=== PATIENT | female | born 1955 | race Caucasian/White ===

== ENCOUNTER 2023-04-17 10:41 | Outpatient (AMB) | payer MEDICARE, SELFPAY ==
[2023-04-17 10:43] VITALS: BP 118/64; PULSE 85; O2SAT 97; BMI 19.9
--- NOTE | 2023-04-17 10:43 | MHC.PC.OV ---
Vital Signs 04/17/23 10:43 Height 5 ft 6 in Weight 123 lb 8 oz BMI 19.9 BP 118/64 Blood Pressure Location Lt brachial Position Sitting Pulse 85 Pulse Source Pulse Oximeter Pulse Oximetry (%) 97 Oxygen Delivery Method Room Air Intake Visit Reasons: 3 MONTH F/U Accompanied by: Self / Same As Patient Allergies thimerosal Allergy (Unknown, Verified 04/17/23 10:43) Unknown Medication List - Last Reconciled 04/17/23 by Lazaro Martinez MD acetaminophen 325 mg PO QID PRN aspirin (Adult Low Dose Aspirin) 81 mg PO DAILY azithromycin take 500 mg today (day 1), then 250 mg for 4 days (days 2-5) PO blood sugar diagnostic One Touch Ultra Test Strips to check blood sugars twice a day brimonidine 0.2% 1 drp ophthalmic (eye) TID cephalexin 250 mg PO Q6H hydrochlorothiazide 12.5 mg PO DAILY ibuprofen 800 mg PO Q12H latanoprost 0.005% 1 drp ophthalmic (eye) BEDTIME lovastatin 40 mg PO DAILY metformin 500 mg PO TID tizanidine 4 mg PO Q8H PRN 30 days tramadol 50 mg PO Q8H PRN valsartan 160 mg PO DAILY Tobacco use date assessed: 08/23/22 Fall risk assessment: No Falls in past year Last assessed Fall Risk: 04/17/23 Dental Screening Dental Screen Date: 04/17/23 Did you have a dental visit in the last 12 months?: Yes Did you have a dental problem in the last 6 months where you did not have access to dental care?: No Was dental information given to patient?: Patient has dentist HPI 3 MONTH F/U HPI Details HTN DM and hyperlipidemia; A1C 7.0; compliant [facility] Medical History Diabetes mellitus Diabetes mellitus with coincident hypertension Hypertension Surgical History Hx of discectomy Family History Father Hypertension Mother Brain tumor Maternal Grandfather Stomach cancer Maternal Aunt Uterine cancer Brother No problems noted. Social History Housing: House Alcohol intake: never Patient Tobacco Use Status: Never used Tobacco e-Cigarette/Vaping Use: Never Used Second Hand Smoke Exposure: No service: No Current occupational status: retired Cognitive needs: No Hearing needs: No Vision needs: No Questionnaire PHQ-9 Over the last 2 weeks, how often have you been bothered by any of the following problems? 1. Little interest or pleasure in doing things: not at all 2. Feeling down, depressed, or hopeless: not at all 3. Trouble falling or staying asleep, or sleeping too much: not at all 4. Feeling tired or having little energy: not at all 5. Poor appetite or overeating: not at all 6. Feeling bad about yourself - or that you are a failure or have let yourself or your family down: not at all 7. Trouble concentrating on things, such as reading the newspaper or watching television: not at all 8. Moving or speaking so slowly that other people could have noticed. Or the opposite - being so fidgety or restless that you have been moving around a lot more than usual: not at all 9. Thoughts that you would be better off or of hurting yourself in some way: not at all Total score: 0 Depression Screening Interpretation: Negative 78751 - PHQ-9 Billing: Yes Source: Developed by Drs. Jacky Olson, Jaelyn Pollock, Luis Alberto Metz and colleagues, with an educational cheryl from [employer]. Thrive Questionnaire Date Thrive assessed: 08/23/22 AUDIT C Alcohol Use Questionnaire (AUDIT-C) 1. How often do you have a drink containing alcohol?: Never Total Score: 0 Score Reviewed/Action Taken: Yes YEVGENIY-7 AMB Questionnaire YEVGENIY-7 Date YEVGENIY - 7 assessed: 08/23/22 Source: Developed by Drs. Jacky Olson, Jaelyn Pollock, Luis Alberto Metz and colleagues, with an educational cheryl from [employer]. Review of Systems Const Denies chills, Denies headache(s) and Denies weight loss ENT Denies headache(s) Card Denies chest pain, Denies syncope, Denies irregular heart rhythm and Denies dyspnea Resp Denies chest congestion, Denies cough and Denies dyspnea GI Denies abdominal pain, Denies change in stool character, Denies nausea and Denies vomiting Musc Denies deformity and Denies joint swelling Neuro Denies syncope and Denies headache(s) Physical exam (Primary Care) Vital Signs: Last Vital Signs Pulse 85 04/17/23 10:43 BP 118/64 04/17/23 10:43 Pulse Ox 97 04/17/23 10:43 Oxygen Delivery Method Room Air 04/17/23 10:43 BMI result Body Mass Index 19.9 Tobacco/Smoking Status: Tobacco use Status Tobacco use date assessed 08/23/22 04/17/23 10:44 Patient Tobacco Use Status Never used Tobacco 04/17/23 10:44 e-Cigarette/Vaping Use Never Used 04/17/23 10:44 PHQ-9: PHQ-9 Score PHQ-9: Total score 0 04/17/23 11:16 Depression Screening Interpretation: Negative Thrive Assessment: Date of Thrive Assessment Date Thrive assessed 08/23/22 04/17/23 10:44 Const General: cooperative, comfortable and no acute distress Resp Effort & Inspection: normal respiratory effort Auscultation: clear to auscultation bilaterally Percussion: percussion normal Cardio Jugular venous distension: no JVD Rate: regular rate Rhythm: regular rhythm GI Inspection: Yes normal to inspection Results AMB Hemoglobin A1c AMB Hemoglobin A1c 7.4 % Last Edit by MEMO Friedman on 04/17/23 11:17 Results Reviewed Results Reviewed: Laboratory Last Values Hgb A1c (Clinic) 7.4 % (4.0-6.0) H 04/17/23 11:16 Assessment and Plan Assessment & Plan (1) Hyperlipidemia: Code(s): E78.5 - Hyperlipidemia, unspecified Plan: stable; same x (2) Diabetes mellitus with coincident hypertension: Code(s): E11.9 - Type 2 diabetes mellitus without complications; I10 - Essential (primary) hypertension Plan: stable; same rx (3) Hypertension: Code(s): I10 - Essential (primary) hypertension Plan: stable; same rx Orders: Orders AMB Hemoglobin A1c Today E11.9 - Type 2 diabetes mellitus without complications Glucose Fasting Today R73.9 - Hyperglycemia, unspecified Hemoglobin A1c Today R73.9 - Hyperglycemia, unspecified Lipid Panel Today E78.5 - Hyperlipidemia, unspecified Coding Level of Care Code Est Pt Level 4 (16142) Diagnoses Hyperlipidemia E78.5 Diabetes mellitus with coincident hypertension E11.9; I10 Hypertension I10
== END 2023-04-17 11:06 | disposition home or self-care (01) ==
PROVIDERS: PCP Internal Medicine; Visit Provider Internal Medicine
DX: E78.5 Hyperlipidemia, unspecified (principal); E11.9 Type 2 diabetes mellitus without complications; I10 Essential (primary) hypertension
CPT/HCPCS: 83036; 99214

== ENCOUNTER 2023-08-27 10:16 | Outpatient (AMB) | payer MEDICARE, SELFPAY ==
[2023-08-27 10:20] VITALS: BP 124/58; PULSE 88; O2SAT 99; BMI 20.5
--- NOTE | 2023-08-27 10:20 | MHC.PC.OV ---
Vital Signs 08/27/23 10:20 Height 5 ft 6 in Weight 127 lb BMI 20.5 BP 124/58 L Blood Pressure Location Lt brachial Position Sitting Pulse 88 Pulse Source Pulse Oximeter Pulse Oximetry (%) 99 Oxygen Delivery Method Room Air Intake Visit Reasons: 3M. F/U-Back Pain Legal Archivist Required: No Riveter Portable Machine: Not Required per policy Accompanied by: Self / Same As Patient Allergies thimerosal Allergy (Unknown, Verified 08/27/23 10:20) Unknown Medication List - Last Reconciled 08/27/23 by Lazaro Martinez MD acetaminophen 325 mg PO QID PRN blood sugar diagnostic One Touch Ultra Test Strips to check blood sugars twice a day brimonidine 0.2% 1 drp ophthalmic (eye) TID hydrochlorothiazide 12.5 mg PO DAILY ibuprofen 800 mg PO Q12H latanoprost 0.005% 1 drp ophthalmic (eye) BEDTIME lovastatin 40 mg PO DAILY metformin 500 mg PO TID tizanidine 4 mg PO Q8H PRN 30 days tramadol 50 mg PO Q8H PRN 30 days valsartan 160 mg PO DAILY Tobacco use date assessed: 08/27/23 Fall risk assessment: No Falls in past year Last assessed Fall Risk: 08/27/23 Dental Screening Dental Screen Date: 08/27/23 Did you have a dental visit in the last 12 months?: Yes Did you have a dental problem in the last 6 months where you did not have access to dental care?: No Was dental information given to patient?: Patient has dentist HPI 3M. F/U-Back Pain HPI Details DM HTN and hyperlip; stable on rx; labs ok PFSH Medical History Diabetes mellitus Diabetes mellitus with coincident hypertension Hypertension Surgical History Hx of discectomy Family History Father Hypertension Mother Brain tumor Maternal Grandfather Stomach cancer Maternal Aunt Uterine cancer Brother No problems noted. Social History Housing: House Alcohol intake: never Patient Tobacco Use Status: Never used Tobacco e-Cigarette/Vaping Use: Never Used Second Hand Smoke Exposure: No service: No Current occupational status: retired Cognitive needs: No Hearing needs: No Vision needs: Yes Questionnaire PHQ-9 Over the last 2 weeks, how often have you been bothered by any of the following problems? 1. Little interest or pleasure in doing things: not at all 2. Feeling down, depressed, or hopeless: not at all 3. Trouble falling or staying asleep, or sleeping too much: not at all 4. Feeling tired or having little energy: not at all 5. Poor appetite or overeating: not at all 6. Feeling bad about yourself - or that you are a failure or have let yourself or your family down: not at all 7. Trouble concentrating on things, such as reading the newspaper or watching television: not at all 8. Moving or speaking so slowly that other people could have noticed. Or the opposite - being so fidgety or restless that you have been moving around a lot more than usual: not at all 9. Thoughts that you would be better off or of hurting yourself in some way: not at all Total score: 0 Depression Screening Interpretation: Negative Depression Screening Done: Yes [id number] - PHQ-9 Billing: Yes Source: Developed by Drs. Jacky Olson, Jaelyn Pollock, Luis Alberto Metz and colleagues, with an educational cheryl from [employer]. Thrive Questionnaire Date Thrive assessed: 08/27/23 I am a: Patient What is your living situation today?: I have a steady place to live Within the past 12 months, did the food you bought not last and you didn't have the money to get more?: Never true Within the past 12 months, did you worry whether your food would run out before you got money to buy more?: Never true Do you have trouble paying for medicines?: No Do you have trouble getting transportation to medical appointments?: No Do you have trouble paying your heating and electricity bill?: No Do you have trouble taking care of your child, family member or friend?: No Do you have trouble with day-to-day activities such as bathing, preparing meals, shopping, managing finances, etc.?: No Are you currently unemployed and looking for a job?: No Are you interested in more education?: No Please select the resources that you would like help with: None Currently or been in a relationship where the following occur: no concerns reported AUDIT C Alcohol Use Questionnaire (AUDIT-C) 1. How often do you have a drink containing alcohol?: Never Total Score: 0 Score Reviewed/Action Taken: Yes YEVGENIY-7 AMB Questionnaire YEVGENIY-7 Date YEVGENIY - 7 assessed: 08/27/23 Feeling nervous, anxious, or on edge: 0 = Not at all Not being able to stop or control worryin = Not at all Worrying too much about different things: 0 = Not at all Trouble relaxin = Not at all Being so restless that it is hard to sit still: 0 = Not at all Becoming easily annoyed or irritable: 0 = Not at all Feeling afraid as if something awful might happen: 0 = Not at all Total YEVGENIY-7 score (0-4 normal; 5-9 mild; 10-14 moderate; 15-21 severe): 0 Source: Developed by Drs. Jacky Olson, Jaelyn Pollock, Luis Alberto Metz and colleagues, with an educational cheryl from [employer]. YEVGENIY-7 Assessment Billing YEVGENIY-7 Assessment Tool: YEVGENIY-7 Assessment 36395 Review of Systems Const Denies chills, Denies headache(s) and Denies weight loss ENT Denies headache(s) Card Denies chest pain, Denies syncope, Denies irregular heart rhythm and Denies dyspnea Resp Denies chest congestion, Denies cough and Denies dyspnea GI Denies abdominal pain, Denies change in stool character, Denies nausea and Denies vomiting Musc Denies deformity and Denies joint swelling Neuro Denies syncope and Denies headache(s) Physical exam (Primary Care) Vital Signs: Last Vital Signs Pulse 88 08/27/23 10:20 BP 124/58 L 08/27/23 10:20 Pulse Ox 99 08/27/23 10:20 Oxygen Delivery Method Room Air 08/27/23 10:20 BMI result Body Mass Index 20.5 Tobacco/Smoking Status: Tobacco use Status Tobacco use date assessed 08/27/23 08/27/23 10:21 Patient Tobacco Use Status Never used Tobacco 08/27/23 10:21 e-Cigarette/Vaping Use Never Used 08/27/23 10:21 PHQ-9: PHQ-9 Score PHQ-9: Total score 0 08/27/23 10:32 Depression Screening Interpretation: Negative Thrive Assessment: Date of Thrive Assessment Date Thrive assessed 08/27/23 08/27/23 10:21 Currently or been in a relationship where the following occur: no concerns reported Const General: cooperative, comfortable, no acute distress and alert Neck Neck: Yes no lymphadenopathy Thyroid: Thyroid normal Resp Effort & Inspection: normal respiratory effort Auscultation: clear to auscultation bilaterally Percussion: percussion normal Cardio Jugular venous distension: no JVD Palpation: normal PMI Rate: regular rate Rhythm: regular rhythm Heart sounds: S1 normal heart sound present and S2 normal heart sound present GI Inspection: Yes normal to inspection Palpation (GI): No hepatosplenomegaly present Skin General skin exam: no rashes or lesions noted Extrem General: Yes no clubbing, cyanosis or edema Results AMB Hemoglobin A1c AMB Hemoglobin A1c 7.0 % Last Edit by MEMO Friedman on 08/27/23 10:33 Results Reviewed Results Reviewed: Laboratory Last Values Hgb A1c (Clinic) 7.0 % (4.0-6.0) H 08/27/23 10:33 Assessment and Plan Assessment & Plan (1) Diabetes mellitus with coincident hypertension: Code(s): E11.9 - Type 2 diabetes mellitus without complications; I10 - Essential (primary) hypertension Plan: stable; same rx (2) Hyperlipidemia: Code(s): E78.5 - Hyperlipidemia, unspecified Plan: stable;same rx (3) Hypertension: Code(s): I10 - Essential (primary) hypertension Plan: stable;same rx Orders: Orders Thyroid Stimulating Hormone Today E03.9 - Hypothyroidism, unspecified Hemoglobin A1c Today R73.9 - Hyperglycemia, unspecified Microalbumin, Random (w Creat) Today E11.69 - Type 2 diabetes mellitus with other specified complication, E66.01 - Morbid (severe) obesity due to excess calories AMB Hemoglobin A1c Today E11.9 - Type 2 diabetes mellitus without complications, I10 - Essential (primary) hypertension Lipid Panel Today E78.5 - Hyperlipidemia, unspecified Complete Blood Count Auto Diff Today D64.9 - Anemia, unspecified Comprehensive [place]. Panel Fast Today N28.9 - Disorder of kidney and ureter, unspecified Coding Level of Care Code Est Pt Level 4 (07544) Diagnoses Diabetes mellitus with coincident hypertension E11.9; I10 Hyperlipidemia E78.5 Hypertension I10 Additional Codes YEVGENIY-7 Assessment Billing - YEVGENIY-7 Assessment Tool: YEVGENIY-7 Assessment [id number] ([id number])
== END 2023-08-27 10:41 | disposition home or self-care (01) ==
PROVIDERS: PCP Internal Medicine; Visit Provider Internal Medicine
DX: E11.69 Type 2 diabetes mellitus with other specified complication (principal); I10 Essential (primary) hypertension; E78.5 Hyperlipidemia, unspecified
CPT/HCPCS: 83036; 99214

== ENCOUNTER 2023-10-24 13:09 | Outpatient (AMB) | payer MEDICARE, SELFPAY ==
--- NOTE | 2023-10-24 13:16 | A.OFFVIS_ITS ---
Intake Vital Signs 10/24/23 13:23 Height 5 ft 6 in Weight 127 lb BMI 20.5 BP 130/72 Blood Pressure Location Lt brachial Position Sitting Respiration 12 Pulse 95 Pulse Source Pulse Oximeter Pulse Oximetry (%) 100 Oxygen Delivery Method Room Air Intake Visit Reasons: Postlaminectomy syndrome/CONFIRM Intake Note: Patient comes in for initial visit was referred by primary care. Reports pain 8.5/10. Allergies thimerosal Allergy (Unknown, Verified 10/24/23 13:23) Unknown HPI HPI Comments History of Present Illness Details Soy is very pleasant 68 years old female who presents in my office with complains on pain in the lower back radiating to the right lower extremity as well as pain in the left buttock in the projection of the sciatic nerve exits to the surface of the muscle in sensation of burning. She reports that prolonged sitting aggravates her pain. She reports that flexing forward cause some moderate discomfort in the lower back. She reports that flexing her spine backwards alleviate her pain and make her feel better. She reports that pain is alleviated also by horizontal position in bed. The history of this pain it started in 2002 she reports that she had [address] Monson in April of 2020 and July of 2020. She reports that both of the procedures aggravated her pain. She received spinal cord stimulator surgical implant in thoracic spine by Dr. Samaniego which was performed in March of 2021. She denies spinal cord stimulator helps her pain. She went through several adjustments with [facility] specialists to make her pain better. She received 2 lumbar epidural steroid injections done by [facility] and does were not helpful for her pain. She is unable to sleep normally can not do activities of daily living can not take care of herself and can function normally she is retired individual. She is self mobile. In terms of tissue damage he reports her pain as shooting in the right leg stabbing in the right leg burning and searing in the left buttock hurting and aching in the right foot and radiating down the right leg and right foot. She received multiple images in the past last MRI was performed on the lumbar spine in 10/29/2020. The dictation of the MRI is as below. She takes tramadol for her pain and she reports that 50 mg twice a day allow her to do activities of daily living better. He had multiple physical therapies with [facility] she received chiropractic manipulations and she reports that it gave her temporary 4-6 hours pain relief. She reports that 10s unit and massage therapy does not help her pain. Her past medical history significant for hypertension and diabetes her past surgical history is as above with 2 diskectomies and spinal cord stimulator implant. Social history she is retired individual she denies drinking alcohol smoking cigarettes or using recreational drugs. [facility] Medical History Diabetes mellitus Diabetes mellitus with coincident hypertension Hypertension Surgical History Hx of discectomy Family History Father Hypertension Mother Brain tumor Maternal Grandfather Stomach cancer Maternal Aunt Uterine cancer Brother No problems noted. Social History Housing: House Alcohol intake: never Patient Tobacco Use Status: Never used Tobacco e-Cigarette/Vaping Use: Never Used Second Hand Smoke Exposure: No service: No Current occupational status: retired Cognitive needs: No Hearing needs: No Vision needs: Yes Review of Systems Const All systems reviewed & are unremarkable except as noted in HPI and below Reports no additional complaints Eyes Details: Glaucoma Reports blurry vision ENT Reports no additional complaints and Reports Normal hearing present Card Reports no additional complaints Resp Reports no additional complaints GI Reports no additional complaints Musc Reports as per HPI Neuro Reports no additional complaints, Reports Normal hearing present, Denies Abnormal speech present, Denies confusion and Denies Sensory deficit (Neuro) Psych Reports no additional complaints and Denies confusion Physical Exam Vital Signs: Last Vital Signs Pulse 95 10/24/23 13:23 Resp 12 10/24/23 13:23 BP 130/72 10/24/23 13:23 Pulse Ox 100 10/24/23 13:23 Oxygen Delivery Method Room Air 10/24/23 13:23 BMI result Body Mass Index 20.5 Const General: no acute distress; No confusion Orientation/consciousness: patient oriented x3 and No confusion Eyes General: appearance normal, both eyes and all related structures Pupils: Equal, round and reactive pupils present EOM: EOMs intact bilaterally Neck Neck: Yes full ROM Chest Chest palpation & inspection: normal inspection of the chest Resp Effort & Inspection: normal respiratory effort, able to speak in complete sentences, normal respiratory pattern, no audible wheezes and no cough Cardio Jugular venous distension: no JVD GI Inspection: Yes normal to inspection Back/Spine/Pelvis Other: There are 2 very well-healed scar on inspection of this patient's back. There is spinal cord stimulator incision in projection of T10-T11 vertebra and there is diskectomy incision in the projection of the L4-5 vertebra in the back. She walks without difficulty she is able to stand on bilateral tiptoes in bilateral heels without difficulty. Flexing forward aggravates her pain and prolonged sitting aggravates her pain. Flexing backwards sexual alleviate her pain. Loading test is negative. Tenderness on palpation in projection of the sacral bone. No tenderness on palpation in projection of the paraspinal spinal regions of the lumbar spine. Tenderness on projection in the left buttock with sensation of burning at the point of sciatic nerve exiting sciatic notch. Neuro General: patient oriented x3, gait normal and No confusion Cranial nerves: Yes CN's II-XII intact bilaterally, Yes Equal, round and reactive pupils present, Yes Normal hearing present and Yes Ability to bilaterally elevate shoulders present Speech: No Abnormal speech present Gait exam (Neuro): Normal gait present Motor exam (neuro): 5/5 motor strength present throughout Sensory Exam: No Sensory deficit (Neuro) Extrem General: No pedal edema Psych Appearance: grossly normal and well kempt Mental Status: mental status grossly normal Speech and movement: Normal speech and movement present Affect: normal affect Attitude: cooperative Thought process: Normal thought process present Thought content: Normal thought content present Insight: Good insight present (Psych) Judgement: Good judgement present (Psych) Results Reviewed Results Reviewed: MRI lumbar spine 09/20/2020 there is past surgical mildly enhancing soft tissues between the spinous processes of L4 and L5 favored to be postoperative there is no focal fluid collection. There is 5 lumbar type vertebral bodies with stable alignment and bone marrow signal intensity. Conus medullaris is stable in position caliber and signal intensity. There are bilateral hemilaminectomy defects at L5-S1 heterogeneous enhancing tissues at the postoperative site. There is residual disc protrusion in paracentral central and left paracentral anterior thecal space with heterogeneous T2 signal intensity measuring approximately 1.7 x 1 cm which demonstrates heterogeneous enhancement with relative sparing of 2 round areas of signal intensity isoechoic to disc in the central and right paracentral compartment. There is continues enhancing tissue extending along the residual left lamina and surrounding left S1 nerve root which is posteriorly retracted and has mild heterogenous signal intensity. There is a new enhancing tissue surrounding right S1 nerve root which is not posteriorly translated but has abnormal enhancement. There is broad-based disc protrusion at L4-L5 and enhancement of the right lateral recess with a small linear focus of T2 hyperintensity within the annulus consistent in the fissure. There is abutment of the traversing L5 nerve roots bilaterally. There is mild ligamentous laxity and facet arthrosis contributing to the mild central canal stenosis. There is no drainable fluid collections. No epidural hematoma. There is no significant changes L1-L3. I also personally evaluated the MRI image as above and discovered L5 and S1 Modic type 1 changes as well as possible L4 subtle Modic type changes. Assessment & Plan Assessment & Plan (1) Vertebrogenic low back pain: Code(s): M54.51 - Vertebrogenic low back pain (2) Postlaminectomy syndrome: Code(s): M96.1 - Postlaminectomy syndrome, not elsewhere classified (3) Chronic pain syndrome: Code(s): G89.4 - Chronic pain syndrome (4) Radiculopathy, lumbar region: Code(s): M54.16 - Radiculopathy, lumbar region Plan This patient is case is very complex and it is hard to determine what his actual pain generators for this patient. There is certainly element of vertebra genic changes which could be attempted to be treated with intraseptal procedure. There also severe protrusion and I would call it extrusion of L5-S1 disc which would result in bilateral nerve root compression S1. For this pathology I could offer the patient caudal epidural steroid injection with catheter. She also has significant adhesions surrounding her nerve roots and caudal epidural steroid injection may help her. It will be done under sedation. If those to above will not be helping her pain I can offer her to admit her for chronic opioid therapy here under opioid contract. Risks of chronic opioid therapy were explained to the patient. She was in the past offered spinal fusion L4-5 S1 probably however she lives alone and very reluctant to go for yet another surgery on her back. Patient Instructions: I here by testify that I spent 48 minutes in conversation with this patient as well as evaluating prior records evaluating diagnostic images discussing potential treatments and organizing this note. Coding Level of Care Code New Pt Level 4 (33908) Diagnoses Vertebrogenic low back pain M54.51 Postlaminectomy syndrome M96.1 Chronic pain syndrome G89.4 Radiculopathy, lumbar region M54.16
[2023-10-24 13:23] VITALS: BP 130/72; PULSE 95; RESP 12; O2SAT 100; BMI 20.5
== END 2023-10-24 14:20 | disposition home or self-care (01) ==
PROVIDERS: PCP Internal Medicine; Visit Provider Anesthesiology
DX: M54.51 Vertebrogenic low back pain (principal); M96.1 Postlaminectomy syndrome, not elsewhere classified; G89.4 Chronic pain syndrome; M54.16 Radiculopathy, lumbar region
CPT/HCPCS: 99204

== ENCOUNTER → 2023-10-24 13:09 | Outpatient (BNVA) | payer MEDICARE, SELFPAY | PROVIDERS: PCP Internal Medicine; Visit Provider Anesthesiology | DX: M96.1 Postlaminectomy syndrome, not elsewhere classified (principal); M54.51 Vertebrogenic low back pain; M54.16 Radiculopathy, lumbar region; G89.4 Chronic pain syndrome; Z79.891 Long term (current) use of opiate analgesic; Z96.82 Presence of neurostimulator | CPT/HCPCS: 99202 ==

== ENCOUNTER 2023-11-23 11:00 | Day surgery (SDC) | payer MEDICARE, SELFPAY ==
[2023-11-21 10:46] VITALS: BMI 20.5
--- NOTE | 2023-11-22 12:00 | HO.ANESPROP2 ---
Documented by User: Crystal Moses NP 11/22/23 12:00 HPI - Anesthesia Eval Consult details Narrative: 68yo F for Caudal Epidural Steroid Injection with catheter PMFSH Active Problems Active Problems: All Active Problems Radiculopathy, lumbar region (Acute) Chronic pain syndrome (Acute) Postlaminectomy syndrome (Acute) Vertebrogenic low back pain (Acute) Ingrown toenail (Acute) Hyperlipidemia (Acute) Shoulder pain, right (Acute) Diabetes mellitus with coincident hypertension (Acute) Hypertension (Acute) Preop exam for internal medicine (Acute) Diabetes mellitus (Acute) Past Medical History Medical History Diabetes mellitus with coincident hypertension Hypertension Diabetes mellitus Family History Family History Father Hypertension Mother Brain tumor Maternal Grandfather Stomach cancer Maternal Aunt Uterine cancer Brother No problems noted. Surgical History Surgical History (Updated 11/23/23 @ 12:06 by Malina Kong MD) S/P insertion of spinal cord stimulator Hx of discectomy Social History Social History Housing: House Alcohol intake: never Patient Tobacco Use Status: Never used Tobacco e-Cigarette/Vaping Use: Never Used Second Hand Smoke Exposure: No Use of substances other than those prescribed or required for medical reasons: No Are you DNR?: No Advance Directives: No Advance Directives Information Provided: Yes service: No Current occupational status: retired Cognitive needs: No Hearing needs: No Vision needs: Yes Meds Allergies Allergy/AdvReac Type Severity Reaction Status Date / Time thimerosal Allergy Unknown Unknown Verified 11/23/23 11:31 gabapentin AdvReac Diarrhea Verified 11/23/23 11:31 Home Medications ?Medication ?Instructions ?Recorded ?Confirmed ?Last Taken ?Type acetaminophen 325 mg capsule 325 mg PO QID PRN 06/08/20 08/27/23 Unknown History brimonidine 0.2 % eye drops 1 drp ophthalmic (eye) TID 06/08/20 08/27/23 Unknown History ibuprofen 800 mg tablet 800 mg PO Q12H 06/08/20 08/27/23 Unknown History latanoprost 0.005 % eye drops 1 drp ophthalmic (eye) BEDTIME 06/08/20 08/27/23 Unknown History Exam Height,Weight and Vital Signs: Height 5 ft 6 in Weight 57.606 kg Assessment and Plan Assessment Anesthesia Assessment: Chart Reviewed Documented by User: Malina Kong MD 11/23/23 12:08 HPI - Anesthesia Eval Consult details Narrative: 68yo F for Caudal Epidural Steroid Injection with catheter. H/o difficult intubation but has had surgery since with no problems with intubation. PMFSH Active Problems Active Problems: All Active Problems Radiculopathy, lumbar region (Acute) Chronic pain syndrome (Acute) Postlaminectomy syndrome (Acute) Vertebrogenic low back pain (Acute) Ingrown toenail (Acute) Hyperlipidemia (Acute) Shoulder pain, right (Acute) Diabetes mellitus with coincident hypertension (Acute) Hypertension (Acute) Preop exam for internal medicine (Acute) Past Medical History Medical History Diabetes mellitus with coincident hypertension Hypertension Diabetes mellitus Family History Family History Father Hypertension Mother Brain tumor Maternal Grandfather Stomach cancer Maternal Aunt Uterine cancer Brother No problems noted. Family history of problems with anesthesia: No Surgical History Surgical History (Updated 11/23/23 @ 12:06 by Malina Kong MD) S/P insertion of spinal cord stimulator Hx of discectomy History of Problems with Anesthesia: Yes (H/o difficult intubation with one of her earlier surgeries. Not since) Social History Social History Housing: House Alcohol intake: never Patient Tobacco Use Status: Never used Tobacco e-Cigarette/Vaping Use: Never Used Second Hand Smoke Exposure: No Use of substances other than those prescribed or required for medical reasons: No Are you DNR?: No Advance Directives: No Advance Directives Information Provided: Yes service: No Current occupational status: retired Cognitive needs: No Hearing needs: No Vision needs: Yes Meds Allergies Allergy/AdvReac Type Severity Reaction Status Date / Time thimerosal Allergy Unknown Unknown Verified 11/23/23 11:31 gabapentin AdvReac Diarrhea Verified 11/23/23 11:31 Home Medications ?Medication ?Instructions ?Recorded ?Confirmed ?Last Taken ?Type acetaminophen 325 mg capsule 325 mg PO QID PRN 06/08/20 08/27/23 Unknown History brimonidine 0.2 % eye drops 1 drp ophthalmic (eye) TID 06/08/20 08/27/23 Unknown History ibuprofen 800 mg tablet 800 mg PO Q12H 06/08/20 08/27/23 Unknown History latanoprost 0.005 % eye drops 1 drp ophthalmic (eye) BEDTIME 06/08/20 08/27/23 Unknown History Exam Height,Weight and Vital Signs: Height 5 ft 6 in Weight 57.606 kg Vital Signs Temp Pulse Resp BP Pulse Ox O2 Del Method 11/23/23 11:38 97.7 F 96 16 162/71 H 98 Room Air Pertinent Lab Results Pertinent Lab Results: Lab Results 11/23/23 Range/Units 11:42 POC Glucose 115 (60-115) mg/dL Airway Mallampati Class: III TM Dist: >3cm Neck ROM: Full Loose/Missing/Broken Teeth: No (Denies broken, loose, missing teeth) Heart: RRR Lungs: CTAB Assessment and Plan Assessment Anesthesia Assessment: Anesthesia Plan Discussed and Chart Reviewed Final Anesthetic Review Family History of Problems with Anesthesia: No History of Problems with Anesthesia: Yes (H/o difficult intubation with one of her earlier surgeries. Not since) NPO: Yes ASA Class: II Final Preanesthetic Review: No Changes in Pt Med Stat, Meds/Allgs Chart Reviewed, Consent Obtained/Reviewed and Anes Risks/Benef Reviewed Patient Risk: Intermediate Procedure Risk: Low Assessment/Block/Sedation in SS: Assess/Block/Sedation-SS Anesthetic Plan Anesthetic Plan: MAC: Disposition: Standard PACU
--- NOTE | ~2023-11-23 | FL_ITS ---
EXAMINATION: XR FLUOROSCOPY WITH IMAGES CLINICAL INFORMATION: Caudal epidural steroid injection. COMPARISON: None. TECHNIQUE: Fluoroscopy Supervised By: Dr. Jc Mendoza. Fluoroscopy Time: 10.4 seconds. Cumulative Dose: 2.0267 mGy. DAP: 2. FINDINGS: The submitted frontal and lateral fluoroscopic images show an injection needle and injected contrast in the vicinity of the epidural space of the sacrum. FL/FL guidance in OR IMPRESSION: Intraoperative fluoroscopic guidance is provided during sacral pain management procedure. Please see the patient's Operative Report for full procedural details.
[2023-11-23 11:21] VITALS: BMI 20.3
[2023-11-23 11:38] VITALS: BP 162/71; PULSE 96; RESP 16; TEMP 36.5; O2SAT 98
[2023-11-23] MEDS: Lactated Ringers 1,000 ML 100 ML IVCONT (11:39)
[2023-11-23 11:46] LABS: Glucose, Whole Blood 115 mg/dL (60-115)
--- NOTE | 2023-11-23 12:16 | MHC.SHP ---
Pre-Procedural Eval Section A - 24 Hr Update-Section A only Date of Service: 11/23/23 The patient is an INPATIENT: No Changes since office visit: Yes Patient answered all questions The patient has been examined within 24 hours of the surgical procedure. The History & Physical has been completed within 30 days and I have reviewed it.: No Section B - Complete if H&P > 30 days Chief Complaint: Radiculopathy, lumbar region Details of Present Illness: as above Relevant Family History (Specify if Yes): No Relevant Social History: Other (specify) Present Medications: None Medical History: No relevant PMH History of Previous Operations: Relevant previous surgery/procedure and date(s) Allergies: Allergies Allergy/AdvReac Type Severity Reaction Status Date / Time thimerosal Allergy Unknown Unknown Verified 11/23/23 11:31 gabapentin AdvReac Diarrhea Verified 11/23/23 11:31 Review of Systems Sugical H&P ROS: Negative: Constitution, Cardiovascular, Respiratory, Neurological, Psychiatric, Hem-Onc, Allergic/Immunologic, Gastrointestinal, Genitourinary, Musculoskeletal, Integumentary, Endocrine and Eyes/Ears/Nose/Throat Exam Surgical H&P Exam: Normal: HEENT, Normal: Heart, Normal: Lungs, Normal: Extremities, Normal: Abdomen, Normal: Skin and Normal: Neurological Plan Diagnosis/Plan: Unchanged I have reviewed the history and physical and performed a pertinent physical examination on my patient. No changes have occurred unless specified. Time Spent With Patient Time: Total time managing care of this patient today ____ minutes.
--- NOTE | 2023-11-23 12:46 | PM.OP ---
Brief Operative Note Date of Service: 11/23/23 Pre-op diagnosis: postlaminectomy syndrome Post-op diagnosis: same Procedure: caudal JAYSHREE with catheter. Surgeon: Jc Mendoza MD Was an Facility Environmental Technician used for this Procedure?: No Estimated blood loss (mL): 1 Condition: stable Disposition: PACU
[2023-11-23 12:50] VITALS: BP 121/49; PULSE 85; RESP 12; TEMP 36.6; O2SAT 95
--- NOTE | 2023-11-23 12:50 | W.PM.OPN ---
Operative Note Operative Note Date of Service: 11/23/23 Narrative: Caudal JAYSHREE with catheter . After obtaining informed consent the patient was taken to the operating room where she was position on operating table prone.? ASA monitors applied and patient was moderately sedated ?Time-out was performed delineating correct site, side, the nature of the procedure, patient's allergy need for antibiotic therapy.? All operating room staff was participating in OR time-out procedure.? Her lower back, bilateral buttocks and intergluteal cleft were thoroughly prepped with ChloraPrep and draped with sterile fenestrated clear drape.? Fluoroscopy C-arm was brought over the operating field and picture of midline sacral bone superimposing on symphysis pubis was obtained on the C-arm screen.? After that the position of the C-arm was turned into the lateral.? The position of sacral hiatus was noted on the screen.? 2.5 cm below the sacral hiatus opening local anesthetic lidocaine 2% 3 cc was injected into the skin with 25 gauge 1/2 inch needle.? After that 18 gauge Touhy needle 10 cm long spinal needle was inserted through the skin and advanced the opening of sacral hiatus on intermittent anterior posterior and lateral views.? When needle entered the sacral canal injection of the contrast performed into the needle demonstrating epidural spread of the contrast.? After that epidural catheter was inserted through the needle and it was advanced into the epidural space until resistance was felt. Contrast injection was performed into the catheter and it demonstrated epidural spread of the contrast mostly on the right side of the epidural space. There was deficiency of the spread of the contrast on the left. After that 25 cc of preservative-free normal saline was injected into the catheter, following administration of lidocaine 1% preservative-free mixed with Kenalog 40 mg. After that epidural catheter was removed from the epidural space en mass with the needle, the tip was intact. Bacitracin ointment was applied to the needle insertion point. The patient tolerated procedure well. She was brought to PACU for recovery.
[2023-11-23 13:05] VITALS: BP 121/49; PULSE 85; RESP 12; O2SAT 95
[2023-11-23 13:20] VITALS: BP 139/68; PULSE 79; RESP 16; TEMP 36.6; O2SAT 97
[2023-11-23] MEDS: Ondansetron ODT 4 MG TAB.RAPDIS TRANSLINGU (14:05)
== END 2023-11-23 14:20 | disposition home or self-care (01) ==
PROVIDERS: PCP Internal Medicine; Visit Provider Anesthesiology
PROC: 3E0R3GC Introduction of Other Therapeutic Substance into Spinal Canal, Percutaneous Approach (ICD-10-PCS; CPT 62322; principal; 2023-11-23 13:50)
DX: M54.16 Radiculopathy, lumbar region (principal); M54.51 Vertebrogenic low back pain; G89.4 Chronic pain syndrome; M96.1 Postlaminectomy syndrome, not elsewhere classified; E11.9 Type 2 diabetes mellitus without complications; I10 Essential (primary) hypertension; Z96.82 Presence of neurostimulator; Z79.84 Long term (current) use of oral hypoglycemic drugs; Z79.899 Other long term (current) drug therapy; Z88.8 Allergy status to other drugs, medicaments and biological substances; Z98.890 Other specified postprocedural states
CPT/HCPCS: 62323; 82947; J2250; J2704; J2795; J3010; J3301; Q9967

== ENCOUNTER → 2023-11-23 11:00 | Outpatient (BNV) | payer MEDICARE, SELFPAY | PROVIDERS: PCP Internal Medicine; Visit Provider Anesthesiology | DX: M96.1 Postlaminectomy syndrome, not elsewhere classified (principal); M54.16 Radiculopathy, lumbar region | CPT/HCPCS: 62323 ==

== ENCOUNTER 2023-11-27 14:07 | Outpatient (AMB) | payer MEDICARE, SELFPAY ==
[2023-11-27 14:09] VITALS: BP 130/78; PULSE 86; O2SAT 98; BMI 20.2
--- NOTE | 2023-11-27 14:09 | A.OFFPC_ITS ---
Vital Signs 11/27/23 14:09 Height 5 ft 6 in Weight 125 lb BMI 20.2 BP 130/78 Blood Pressure Location Lt brachial Position Sitting Pulse 86 Pulse Source Pulse Oximeter Pulse Oximetry (%) 98 Oxygen Delivery Method Room Air Intake Visit Reasons: Jonathon Abdi, cataract Intake Note: Patient is here for a Pre-op for Catarcat scheduled with Dr. Abdi on 12/18/2023 Stack Attendant Required: No Accompanied by: Self / Same As Patient Allergies thimerosal Allergy (Unknown, Verified 11/27/23 14:09) Unknown gabapentin Adverse Reaction (Verified 11/27/23 14:09) Diarrhea Medication List - Last Reconciled 11/28/23 by Lazaro Martinez MD acetaminophen 325 mg PO QID PRN blood sugar diagnostic One Touch Ultra Test Strips to check blood sugars twice a day brimonidine 0.2% 1 drp ophthalmic (eye) TID hydrochlorothiazide 12.5 mg PO DAILY ibuprofen 800 mg PO Q12H latanoprost 0.005% 1 drp ophthalmic (eye) BEDTIME lovastatin 40 mg PO DAILY metformin 500 mg PO TID tizanidine 4 mg PO Q8H PRN 30 days tramadol 50 mg PO Q8H PRN 30 days valsartan 160 mg PO DAILY Tobacco use date assessed: 11/27/23 Fall risk assessment: No Falls in past year Last assessed Fall Risk: 11/27/23 Dental Screening Dental Screen Date: 11/27/23 Did you have a dental visit in the last 12 months?: No Did you have a dental problem in the last 6 months where you did not have access to dental care?: No Was dental information given to patient?: Patient has dentist HPI Jonathon Abdi, cataract HPI Details Having right eye surgery for glaucoma; DM HTN and hyperlipidemia; chronic back pain due to DDD PFSH Medical History (Updated 11/28/23 @ 12:59 by Lazaro Martinez MD) Diabetes mellitus with coincident hypertension Hypertension Diabetes mellitus Surgical History (Updated 11/23/23 @ 12:06 by Malina Kong MD) S/P insertion of spinal cord stimulator Hx of discectomy Family History Father Hypertension Mother Brain tumor Maternal Grandfather Stomach cancer Maternal Aunt Uterine cancer Brother No problems noted. Social History Housing: House Alcohol intake: never Patient Tobacco Use Status: Never used Tobacco e-Cigarette/Vaping Use: Never Used Second Hand Smoke Exposure: No service: No Current occupational status: retired Cognitive needs: No Hearing needs: No Vision needs: Yes Questionnaire PHQ-9 Over the last 2 weeks, how often have you been bothered by any of the following problems? 1. Little interest or pleasure in doing things: not at all 2. Feeling down, depressed, or hopeless: not at all 3. Trouble falling or staying asleep, or sleeping too much: not at all 4. Feeling tired or having little energy: not at all 5. Poor appetite or overeating: not at all 6. Feeling bad about yourself - or that you are a failure or have let yourself or your family down: not at all 7. Trouble concentrating on things, such as reading the newspaper or watching television: not at all 8. Moving or speaking so slowly that other people could have noticed. Or the opposite - being so fidgety or restless that you have been moving around a lot more than usual: not at all 9. Thoughts that you would be better off or of hurting yourself in some way: not at all Total score: 0 Depression Screening Interpretation: Negative Depression Screening Done: Yes 27108 - PHQ-9 Billing: Yes Source: Developed by Drs. Jacky Olson, Jaelyn Pollock, Luis Alberto Metz and colleagues, with an educational cheryl from [employer]. Thrive Questionnaire Date Thrive assessed: 08/27/23 I am a: Patient What is your living situation today?: I have a steady place to live Within the past 12 months, did the food you bought not last and you didn't have the money to get more?: Never true Within the past 12 months, did you worry whether your food would run out before you got money to buy more?: Never true Do you have trouble paying for medicines?: No Do you have trouble getting transportation to medical appointments?: No Do you have trouble paying your heating and electricity bill?: No Do you have trouble taking care of your child, family member or friend?: No Do you have trouble with day-to-day activities such as bathing, preparing meals, shopping, managing finances, etc.?: No Are you currently unemployed and looking for a job?: No Are you interested in more education?: No Please select the resources that you would like help with: None Currently or been in a relationship where the following occur: no concerns reported THRIVE Score: 0 AUDIT C Alcohol Use Questionnaire (AUDIT-C) 1. How often do you have a drink containing alcohol?: Never Total Score: 0 Score Reviewed/Action Taken: Yes YEVGENIY-7 AMB Questionnaire YEVGENIY-7 Date YEVGENIY - 7 assessed: 08/27/23 Source: Developed by Drs. Jacky Olson, Jaelyn Pollock, Luis Alberto Metz and colleagues, with an educational cheryl from [employer]. Review of Systems Const Denies chills, Denies fatigue, Denies headache(s) and Denies weight loss Eyes Denies change in vision, Denies diplopia and Denies eye pain ENT Denies vertigo, Denies dizziness, Denies headache(s) and Denies nasal discharge Card Denies chest pain, Denies rapid heart rate and Denies dyspnea on exertion Resp Denies chest congestion, Denies cough, Denies pain with cough and Denies dyspnea on exertion GI Denies abdominal pain, Denies hematochezia and Denies change in bowel habits Musc Denies myalgias, Denies arthralgias and Denies joint swelling Skin/Breast Denies lesions and Denies unusual bruising Neuro Denies vertigo, Denies dizziness, Denies headache(s) and Denies focal weakness Endo Denies fatigue Physical exam (Primary Care) Vital Signs: Last Vital Signs Pulse 86 11/27/23 14:09 BP 130/78 11/27/23 14:09 Pulse Ox 98 11/27/23 14:09 Oxygen Delivery Method Room Air 11/27/23 14:09 BMI result Body Mass Index 20.2 Tobacco/Smoking Status: Tobacco use Status Tobacco use date assessed 11/27/23 11/27/23 14:11 Patient Tobacco Use Status Never used Tobacco 11/27/23 14:11 e-Cigarette/Vaping Use Never Used 11/27/23 14:11 PHQ-9: PHQ-9 Score PHQ-9: Total score 0 11/27/23 14:20 Depression Screening Interpretation: Negative Thrive Assessment: Date of Thrive Assessment Date Thrive assessed 08/27/23 11/27/23 14:11 Currently or been in a relationship where the following occur: no concerns reported Const General: cooperative, healthy appearing and no acute distress Orientation/consciousness: oriented to person, oriented to place and oriented to time HENMT Head: Yes normal to inspection, Yes normocephalic and Yes atraumatic Mouth: Normal oral and palatal mucosa present and tongue normal Throat: Yes posterior oropharynx normal and Yes uvula midline Eyes General: appearance normal, both eyes and all related structures Neck Neck: Yes normal visual inspection, Yes full ROM and Yes no lymphadenopathy Thyroid: Thyroid normal Carotids: normal carotid upstroke Chest Chest palpation & inspection: normal inspection of the chest Resp Effort & Inspection: normal respiratory effort and able to speak in complete sentences Auscultation: clear to auscultation bilaterally Cardio Jugular venous distension: no JVD Palpation: normal PMI Rate: regular rate Rhythm: regular rhythm Heart sounds: S1 normal heart sound present and S2 normal heart sound present GI Inspection: Yes normal to inspection Palpation (GI): Soft to palpation and No hepatosplenomegaly present Auscultation: normal bowel sounds General: Yes no CVA tenderness Back/Spine/Pelvis Back: no CVA tenderness Skin General skin exam: no rashes or lesions noted Neuro General: oriented to person, oriented to place and oriented to time Extrem General: Yes normal to inspection and Yes full ROM Results AMB Hemoglobin A1c AMB Hemoglobin A1c 6.8 % Last Edit by MEMO Kilgore on 11/27/23 14:20 Results Reviewed Results Reviewed: Laboratory Last Values Hgb A1c (Clinic) 6.8 % (4.0-6.0) H 11/27/23 14:08 Assessment and Plan Assessment & Plan (1) Preop exam for internal medicine: Code(s): Z01.818 - Encounter for other preprocedural examination Plan: low risk for cardiovascular complications; cleared for surgery (2) Hyperlipidemia: Code(s): E78.5 - Hyperlipidemia, unspecified Plan: stable; same rx (3) Diabetes mellitus with coincident hypertension: Code(s): E11.9 - Type 2 diabetes mellitus without complications; I10 - Essential (primary) hypertension Plan: stable; hold metformin day of surgery (4) Hypertension: Code(s): I10 - Essential (primary) hypertension Plan: stable; same rx (5) Postlaminectomy syndrome: Code(s): M96.1 - Postlaminectomy syndrome, not elsewhere classified Orders: Orders AMB Hemoglobin A1c 11/27/23 E11.9 - Type 2 diabetes mellitus without complications Coding Level of Care Code Est Pt Level 4 (31120) Diagnoses Preop exam for internal medicine Z01.818 Hyperlipidemia E78.5 Diabetes mellitus with coincident hypertension E11.9; I10 Hypertension I10 Postlaminectomy syndrome M96.1
== END 2023-11-27 15:44 | disposition home or self-care (01) ==
PROVIDERS: PCP Internal Medicine; Visit Provider Internal Medicine
DX: E78.5 Hyperlipidemia, unspecified (principal); E11.9 Type 2 diabetes mellitus without complications; Z01.818 Encounter for other preprocedural examination; I10 Essential (primary) hypertension; M96.1 Postlaminectomy syndrome, not elsewhere classified
CPT/HCPCS: 83036; 99214

== ENCOUNTER 2023-12-26 10:19 | Outpatient (AMB) | payer MEDICARE, SELFPAY ==
--- NOTE | 2023-12-26 10:20 | A.OFFVIS_ITS ---
Vital Signs 12/26/23 10:25 Height 5 ft 6 in Weight 127 lb 2 oz BMI 20.5 BP 130/62 Blood Pressure Location Lt brachial Position Sitting Respiration 14 Pulse 96 Pulse Source Pulse Oximeter Pulse Oximetry (%) 100 Oxygen Delivery Method Room Air Intake Visit Reasons: S/p Caudal JAYSHREE W/ Catheter 11/23/23 Intake Note: Patient comes in for post-op appointment. Reports pain 7.5/10. Allergies thimerosal Allergy (Unknown, Verified 12/26/23 10:26) Unknown gabapentin Adverse Reaction (Verified 12/26/23 10:26) Diarrhea HPI Comments Details: Soy is back in my office after caudal epidural steroid injection with catheter which was performed on her 1 month ago. She reports very minimal pain improvement. Unfortunately she reports concurrent side effects including swelling of the face and bilateral upper and lower extremities unpleasant taste in the mouth, nausea, and also spastic sensation in the lower extremities. Those are all possible side effects of the steroids. Therefore for the steroid injections would be contraindicated for this patient. I offered her intrathecal pain pump. I also offered her to become a member of our chronic opioid program to put her on very small dose of hydromorphone. She reported that hydromorphone in the past gave her very good pain relief. Currently she is with primary care physician on tramadol and she is trying to spare her tramadol taking it half a pill at a time. I explained to her that it is not prudent way to take the medication because tramadol relies on liver metabolism to become the active ingredient. I also discussed with the patient possibility of treating her pain with some cruz pplements and vitamins including right side alpha lipoic acid. However she is suffering from significant glaucoma and that may interfere with her ability to receive some of the medications. She needs to get consult from her tassel making machine operator to discuss this. Prior: very pleasant 68 years old female who presents in my office with complains on pain in the lower back radiating to the right lower extremity as well as pain in the left buttock in the projection of the sciatic nerve exits to the surface of the muscle in sensation of burning. prolonged sitting aggravates her pain. Flexing forward cause some moderate discomfort in the lower back however sometimes she reports that flexing forward helps her pain in the back.. She reports that flexing her spine backwards alleviate her pain and make her feel better. She reports that pain is alleviated also by horizontal position in bed. The history of this pain it started in 2002 she reports that she had [address] Monson in April of 2020 and July of 2020. She reports that both of the procedures aggravated her pain. She received spinal cord stimulator surgical implant in thoracic spine by Dr. Samaniego which was performed in March of 2021. She denies spinal cord stimulator helps her pain. She went through several adjustments with [facility] specialists to make her pain better. She received 2 lumbar epidural steroid injections done by [facility] and does were not helpful for her pain. [facility] Medical History (Updated 11/28/23 @ 12:59 by Lazaro Martinez MD) Diabetes mellitus with coincident hypertension Hypertension Diabetes mellitus Surgical History (Updated 11/23/23 @ 12:06 by Malina Kong MD) S/P insertion of spinal cord stimulator Hx of discectomy Family History Father Hypertension Mother Brain tumor Maternal Grandfather Stomach cancer Maternal Aunt Uterine cancer Brother No problems noted. Social History Housing: House Alcohol intake: never Patient Tobacco Use Status: Never used Tobacco e-Cigarette/Vaping Use: Never Used Second Hand Smoke Exposure: No service: No Current occupational status: retired Cognitive needs: No Hearing needs: No Vision needs: Yes Review of Systems Const All systems reviewed & are unremarkable except as noted in HPI and below ENT Reports Normal hearing present Neuro Reports Normal hearing present, Denies Abnormal speech present, Denies confusion and Denies Sensory deficit (Neuro) Psych Denies confusion Physical Exam Vital Signs: Last Vital Signs Pulse 96 12/26/23 10:25 Resp 14 12/26/23 10:25 BP 130/62 12/26/23 10:25 Pulse Ox 100 12/26/23 10:25 Oxygen Delivery Method Room Air 12/26/23 10:25 BMI result Body Mass Index 20.5 Const General: no acute distress; No confusion Orientation/consciousness: patient oriented x3 and No confusion Eyes General: appearance normal, both eyes and all related structures Pupils: Equal, round and reactive pupils present EOM: EOMs intact bilaterally Neck Neck: Yes full ROM Chest Chest palpation & inspection: normal inspection of the chest Resp Effort & Inspection: normal respiratory effort, able to speak in complete s entences, normal respiratory pattern, no audible wheezes and no cough Cardio Jugular venous distension: no JVD GI Inspection: Yes normal to inspection Back/Spine/Pelvis Other: There are 2 very well-healed scar on inspection of this patient's back. There is spinal cord stimulator incision in projection of T10-T11 vertebra and there is diskectomy incision in the projection of the L4-5 vertebra in the back. She walks without difficulty she is able to stand on bilateral tiptoes in bilateral heels without difficulty. Flexing forward aggravates her pain and prolonged sitting aggravates her pain. Flexing backwards sexual alleviate her pain. Loading test is negative. Tenderness on palpation in projection of the sacral bone. No tenderness on palpation in projection of the paraspinal spinal regions of the lumbar spine. Tenderness on projection in the left buttock with sensation of burning at the point of sciatic nerve exiting sciatic notch. Neuro General: patient oriented x3, gait normal and No confusion Cranial nerves: Yes CN's II-XII intact bilaterally, Yes Equal, round and reactive pupils present, Yes Normal hearing present and Yes Ability to bilaterally elevate shoulders present Speech: No Abnormal speech present Gait exam (Neuro): Normal gait present Motor exam (neuro): 5/5 motor strength present throughout Sensory Exam: No Sensory deficit (Neuro) Extrem General: No pedal edema Psych Appearance: grossly normal and well kempt Mental Status: mental status grossly normal Speech and movement: Normal speech and movement present Affect: normal affect Attitude: cooperative Thought process: Normal thought process present Thought content: Normal thought content present Insight: Good insight present (Psych) Judgement: Good judgement present (Psych) Results Reviewed Results Reviewed: MRI lumbar spine 09/20/2020 there is past surgical mildly enhancing soft tissues between the spinous processes of L4 and L5 favored to be postoperative there is no focal fluid collection. There is 5 lumbar type vertebral bodies with stable alignment and bone marrow signal intensity. Conus medullaris is stable in position caliber and signal intensity. There are bilateral hemilaminectomy defects at L5-S1 heterogeneous enhancing tissues at the postoperative site. There is residual disc protrusion in paracentral central and left paracentral anterior thecal space with heterogeneous T2 signal intensity measuring approximately 1.7 x 1 cm which demonstrates heterogeneous enhancement with relative sparing of 2 round areas of signal intensity isoechoic to disc in the central and right paracentral compartment. There is continues enhancing tissue extending along the residual left lamina and surrounding left S1 nerve root which is posteriorly retracted and has mild heterogenous signal intensity. There is a new enhancing tissue surrounding right S1 nerve root which is not posteriorly translated but has abnormal enhancement. There is broad-based disc protrusion at L4-L5 and enhancement of the right lateral recess with a small linear focus of T2 hyperintensity within the annulus consistent in the fissure. There is abutment of the traversing L5 nerve roots bilaterally. There is mild ligamentous laxity and facet arthrosis contributing to the mild central canal stenosis. There is no drainable fluid collections. No epidural hematoma. There is no significant changes L1-L3. I also personally evaluated the MRI image as above and discovered L5 and S1 Modic type 1 changes as well as possible L4 subtle Modic type changes. Assessment & Plan Assessment & Plan (1) Vertebrogenic low back pain: Code(s): M54.51 - Vertebrogenic low back pain Category: Medical (2) Postlaminectomy syndrome: Code(s): M96.1 - Postlaminectomy syndrome, not elsewhere classified Category: Medical (3) Chronic pain syndrome: Code(s): G89.4 - Chronic pain syndrome Category: Medical (4) Radiculopathy, lumbar region: Code(s): M54.16 - Radiculopathy, lumbar region Category: Medical Plan This patient is case is very complex and it is hard to determine what his actual pain generators for this patient. There is certainly element of vertebra genic changes which could be attempted to be treated with intrasept procedure. However today when she reported her pain being alleviated when she is flexing herself forward the vertebra genic pain diagnosis became less prominent for me. Minimal results with caudal JAYSHREE with catheter, concurrent with significant side effects described as above. I do not believe any steroid injections would be a good idea for this patient. Pain pump was explained to the patient. Chronic opioid program was also mentioned to the patient. Her habit to take her tramadol by half a pill was criticized, she was taught to take full pill tramadol as it is prescribed for her. Alpha lipoic acid was discussed with the patient as well. She needs to discuss it with her tassel making machine operator. Patient Instructions: I here by testify that I spent 32 minutes in conversation with this patient as well as planning her care and organizing this note. Coding Level of Care Code Est Pt Level 4 (41289) Diagnoses Vertebrogenic low back pain M54.51 Postlaminectomy syndrome M96.1 Chronic pain syndrome G89.4 Radiculopathy, lumbar region M54.16
[2023-12-26 10:25] VITALS: BP 130/62; PULSE 96; RESP 14; O2SAT 100; BMI 20.5
== END 2023-12-26 11:21 | disposition home or self-care (01) ==
PROVIDERS: PCP Internal Medicine; Visit Provider Anesthesiology
DX: M54.51 Vertebrogenic low back pain (principal); M96.1 Postlaminectomy syndrome, not elsewhere classified; G89.4 Chronic pain syndrome; M54.16 Radiculopathy, lumbar region
CPT/HCPCS: 99214

== ENCOUNTER → 2023-12-26 10:19 | Outpatient (BNVA) | payer MEDICARE, SELFPAY | PROVIDERS: PCP Internal Medicine; Visit Provider Anesthesiology | DX: M54.51 Vertebrogenic low back pain (principal); M96.1 Postlaminectomy syndrome, not elsewhere classified; M54.16 Radiculopathy, lumbar region; G89.4 Chronic pain syndrome | CPT/HCPCS: 99212 ==

== ENCOUNTER 2024-07-22 11:19 | Outpatient (AMB) | payer MEDICARE, SELFPAY ==
[2024-07-22 11:20] VITALS: BP 118/72; PULSE 69; O2SAT 98; BMI 19.5
--- NOTE | 2024-07-22 11:20 | A.OFFPC_ITS ---
Vital Signs 07/22/24 11:20 Height 5 ft 6 in Weight 121 lb BMI 19.5 BP 118/72 Blood Pressure Location Lt brachial Position Sitting Pulse 69 Pulse Source Pulse Oximeter Pulse Oximetry (%) 98 Oxygen Delivery Method Room Air Intake Visit Reasons: Back pain f/u Allergies thimerosal Allergy (Unknown, Verified 07/22/24 11:21) Unknown gabapentin Adverse Reaction (Verified 07/22/24 11:21) Diarrhea Tobacco use date assessed: 07/22/24 Fall risk assessment: No Falls in past year Last assessed Fall Risk: 07/22/24 Dental Screening Dental Screen Date: 11/27/23 HPI Back pain f/u HPI Details DM in good control; due for labs [facility] Medical History (Updated 11/28/23 @ 12:59 by Lazaro Martinez MD) Diabetes mellitus with coincident hypertension Hypertension Diabetes mellitus Surgical History (Updated 11/23/23 @ 12:06 by Malina Kong MD) S/P insertion of spinal cord stimulator Hx of discectomy Family History Father Hypertension Mother Brain tumor Maternal Grandfather Stomach cancer Maternal Aunt Uterine cancer Brother No problems noted. Social History Housing: House Alcohol intake: never Patient Tobacco Use Status: Never used Tobacco Tobacco use type: Cigarette e-Cigarette/Vaping Use: Never Used Second Hand Smoke Exposure: No service: No Current occupational status: retired Cognitive needs: No Hearing needs: No Vision needs: Yes Questionnaire PHQ-9 Over the last 2 weeks, how often have you been bothered by any of the following problems? 1. Little interest or pleasure in doing things: not at all 2. Feeling down, depressed, or hopeless: not at all 3. Trouble falling or staying asleep, or sleeping too much: not at all 4. Feeling tired or having little energy: not at all 5. Poor appetite or overeating: not at all 6. Feeling bad about yourself - or that you are a failure or have let yourself or your family down: not at all 7. Trouble concentrating on things, such as reading the newspaper or watching television: not at all 8. Moving or speaking so slowly that other people could have noticed. Or the opposite - being so fidgety or restless that you have been moving around a lot more than usual: not at all 9. Thoughts that you would be better off or of hurting yourself in some way: not at all Total score: 0 Depression Screening Interpretation: Negative Depression Screening Done: Yes 57198 - PHQ-9 Billing: Yes Source: Developed by Drs. Jacky Olson, Jaelyn Pollock, Luis Alberto Metz and colleagues, with an educational cheryl from [employer]. Thrive Questionnaire Date Thrive assessed: 08/27/23 AUDIT C Alcohol Use Questionnaire (AUDIT-C) 1. How often do you have a drink containing alcohol?: Never Total Score: 0 Score Reviewed/Action Taken: Yes YEVGENIY-7 AMB Questionnaire YEVGENIY-7 Date YEVGENIY - 7 assessed: 08/27/23 Source: Developed by Drs. Jacky Olson, Jaelyn Pollock, Luis Alberto sanchez nd colleagues, with an educational cheryl from [employer]. Review of Systems Const Denies chills, Denies headache(s) and Denies weight loss ENT Denies headache(s) Card Denies chest pain, Denies syncope, Denies irregular heart rhythm and Denies dyspnea Resp Denies chest congestion, Denies cough and Denies dyspnea GI Denies abdominal pain, Denies change in stool character, Denies nausea and Denies vomiting Musc Denies deformity and Denies joint swelling Neuro Denies syncope and Denies headache(s) Physical exam (Primary Care) Vital Signs: Last Vital Signs Pulse 69 07/22/24 11:20 BP 118/72 07/22/24 11:20 Pulse Ox 98 07/22/24 11:20 Oxygen Delivery Method Room Air 07/22/24 11:20 BMI result Body Mass Index 19.5 Tobacco/Smoking Status: Tobacco use Status Tobacco use date assessed 07/22/24 07/22/24 11:23 Patient Tobacco Use Status Never used Tobacco 07/22/24 11:23 Tobacco use type Cigarette 07/22/24 11:23 e-Cigarette/Vaping Use Never Used 07/22/24 11:23 PHQ-9: PHQ-9 Score PHQ-9: Total score 0 07/22/24 11:49 Depression Screening Interpretation: Negative Thrive Assessment: Date of Thrive Assessment Date Thrive assessed 08/27/23 07/22/24 11:23 Const General: cooperative, comfortable, no acute distress and alert Neck Neck: Yes no lymphadenopathy Thyroid: Thyroid normal Resp Effort & Inspection: normal respiratory effort Auscultation: clear to auscultation bilaterally Percussion: percussion normal Cardio Jugular venous distension: no JVD Palpation: normal PMI Rate: regular rate Rhythm: regular rhythm Heart sounds: S1 normal heart sound present and S2 normal heart sound present GI Inspection: Yes normal to inspection Palpation (GI): No hepatosplenomegaly present Skin General skin exam: no rashes or lesions noted Extrem General: Yes no clubbing, cyanosis or edema Office Procedures Flu Questionnaire Does the patient have a severe egg allergy?: No Does the patient have severe life threatening allergies?: No Does the patient have a fever or illness today?: No Has the patient ever had Guillain-[place] Syndrome?: No Has the patient ever had any past reaction to a flu shot?: No Results AMB Hemoglobin A1c AMB Hemoglobin A1c 6.6 % Last Edit by Emmy Sotelo CMA on 07/22/24 11 :49 Immunizations Fluarix Triv [id number] (PF) 45 mcg (15 mcg x 3)/0.5 mL IM syringe Performing Provider: Lazaro Martinez MD [place] [facility] [place] [facility] Administered by: Emmy Sotelo CMA on 07/22/24 11:46 Dose Route Admin Location Dispensed Lot Number Expiration Date [employer] Department Head 0.5 mL IM Left Deltoid 0.5 mL [id number] 02/09/25 [id number] Just [employer] It VIS Given Date VIS Provided VIS Publication Date 07/22/24 Single Vaccine 21 Eligibility Eligibility Date Funding Source Not [facility] Eligible 07/22/24 Private Results Reviewed Results Reviewed: Laboratory Last Values Hgb A1c (Clinic) 6.6 % (4.0-6.0) H 07/22/24 11:23 Coding Level of Care Code Est Pt Level 3 (12162) Diagnoses Diabetes mellitus with coincident hypertension E11.9; I10 Additional Codes PHQ-9 - 56204 - PHQ-9 Billing: Yes ([id number]) Assessment & Plan Assessment & Plan (1) Diabetes mellitus with coincident hypertension: Code(s): E11.9 - Type 2 diabetes mellitus without complications; I10 - Essential (primary) hypertension Category: Medical Plan: stable; same rx Orders: Orders AMB Hemoglobin A1c 07/22/24 Z13.9 - Encounter for screening, unspecified Complete Blood Count Auto Diff 07/22/24 Z13.0 - Encounter for screening for diseases of the blood and blood-forming organs and certain disorders involving the immune mechanism Comprehensive Hope. Panel Fast 07/22/24 Z13.9 - Encounter for screening, unspecified Thyroid Stimulating Hormone 07/22/24 Z13.29 - Encounter for screening for other suspected endocrine disorder Hemoglobin A1c 07/22/24 R73.9 - Hyperglycemia, unspecified Influenza [id number] Immunization 07/22/24 Z23 - Encounter for immunization Lipid Panel 07/22/24 Z13.220 - Encounter for screening for lipoid disorders
== END 2024-07-22 11:53 | disposition home or self-care (01) ==
PROVIDERS: PCP Internal Medicine; Visit Provider Internal Medicine
DX: E11.9 Type 2 diabetes mellitus without complications (principal); I10 Essential (primary) hypertension

== ENCOUNTER → 2024-07-22 11:19 | Outpatient (BNVA) | payer MEDICARE, SELFPAY | PROVIDERS: PCP Internal Medicine; Visit Provider Internal Medicine | DX: Z23 Encounter for immunization (principal); E11.9 Type 2 diabetes mellitus without complications; I10 Essential (primary) hypertension | CPT/HCPCS: 83036; 90471; 90656; 96127; 99212 ==

== ENCOUNTER 2024-09-29 10:35 | Outpatient (AMB) | payer MEDICARE, SELFPAY ==
--- NOTE | 2024-09-29 10:56 | MHC.PC.OV ---
Vital Signs 09/29/24 10:58 Height 5 ft 6 in Weight 124 lb 2 oz BMI 20.0 BP 100/62 Blood Pressure Location Lt brachial Position Sitting Pulse 85 Pulse Source Pulse Oximeter Temp 97.3 F Temp Source Temporal Artery Scan Pulse Oximetry (%) 97 Oxygen Delivery Method Room Air Intake Visit Reasons: Eye surgery Cataract october 14 Intake Note: Patient is here for a Pre-op for Eye surgery scheduled with Dr Nena Marqeuz ([facility]) on 10/14/24. Pharmacy Services Representative Required: No Oyster Farmer: Not Required per policy Accompanied by: Self / Same As Patient Allergies thimerosal Allergy (Unknown, Verified 09/29/24 10:57) Unknown gabapentin Adverse Reaction (Verified 09/29/24 10:57) Diarrhea Medication List - Last Reconciled 09/30/24 by Lazaro Martinez MD blood sugar diagnostic One Touch Ultra Test Strips to check blood sugars twice a day brimonidine 0.2% 1 drp ophthalmic (eye) TID hydrochlorothiazide 12.5 mg PO DAILY latanoprost 0.005% 1 drp ophthalmic (eye) BEDTIME lovastatin 40 mg PO DAILY metformin 500 mg PO TID tramadol 50 mg PO Q8H PRN 30 days valsartan 160 mg PO DAILY Tobacco use date assessed: 09/29/24 Fall risk assessment: No Falls in past year Last assessed Fall Risk: 09/29/24 Dental Screening Dental Screen Date: 09/29/24 Did you have a dental visit in the last 12 months?: Yes Did you have a dental problem in the last 6 months where you did not have access to dental care?: No Was dental information given to patient?: Patient has dentist HPI Eye surgery Cataract october 14 HPI Details Having glaucoma surgery on her right eye; has DM hypertension and hyperlipidemia; stable ;n ox; chronic low back pain PFSH Medical History (Updated 11/28/23 @ 12:59 by Lazaro Martinez MD) Diabetes mellitus with coincident hypertension Hypertension Diabetes mellitus Surgical History S/P insertion of spinal cord stimulator Hx of discectomy Family History Father Hypertension Mother Brain tumor Maternal Grandfather Stomach cancer Maternal Aunt Uterine cancer Brother No problems noted. Social History Housing: House Alcohol intake: never Patient Tobacco Use Status: Never used Tobacco Tobacco use type: Cigarette e-Cigarette/Vaping Use: Never Used Second Hand Smoke Exposure: No service: No Current occupational status: retired Cognitive needs: No Hearing needs: No Vision needs: Yes Questionnaire PHQ-9 Over the last 2 weeks, how often have you been bothered by any of the following problems? 1. Little interest or pleasure in doing things: not at all 2. Feeling down, depressed, or hopeless: not at all 3. Trouble falling or staying asleep, or sleeping too much: not at all 4. Feeling tired or having little energy: not at all 5. Poor appetite or overeating: not at all 6. Feeling bad about yourself - or that you are a failure or have let yourself or your family down: not at all 7. Trouble concentrating on things, such as reading the newspaper or watching television: not at all 8. Moving or speaking so slowly that other people could have noticed. Or the opposite - being so fidgety or restless that you have been moving around a lot more than usual: not at all 9. Thoughts that you would be better off or of hurting yourself in some way: not at all Total score: 0 Depression Screening Interpretation: Negative Depression Screening Done: Yes Source: Developed by Drs. Jacky Olson, Jaelyn Pollock, Luis Alberto Metz and colleagues, with an educational cheryl from [employer]. Thrive Questionnaire Date Thrive assessed: 09/29/24 I am a: Patient What is your living situation today?: I have a steady place to live Within the past 12 months, did the food you bought not last and you didn't have the money to get more?: Never true Within the past 12 months, did you worry whether your food would run out before you got money to buy more?: Never true Do you have trouble paying for medicines?: No Do you have trouble getting transportation to medical appointments?: No Do you have trouble paying your heating and electricity bill?: No Do you have trouble taking care of your child, family member or friend?: No Do you have trouble with day-to-day activities such as bathing, preparing meals, shopping, managing finances, etc.?: No Are you currently unemployed and looking for a job?: No Are you interested in more education?: No Please select the resources that you would like help with: None Currently or been in a relationship where the following occur: No concerns reported THRIVE Score: 0 AUDIT C Alcohol Use Questionnaire (AUDIT-C) 1. How often do you have a drink containing alcohol?: Never Total Score: 0 YEVGENIY-7 AMB Questionnaire YEVGENIY-7 Date YEVGENIY - 7 assessed: 09/29/24 Feeling nervous, anxious, or on edge: 0 = Not at all Not being able to stop or control worryin = Not at all Worrying too much about different things: 0 = Not at all Trouble relaxin = Not at all Being so restless that it is hard to sit still: 0 = Not at all Becoming easily annoyed or irritable: 0 = Not at all Feeling afraid as if something awful might happen: 0 = Not at all Total YEVGENIY-7 score (0-4 normal; 5-9 mild; 10-14 moderate; 15-21 severe): 0 Source: Developed by Drs. Jacky Olson, Jaelyn Pollock, Luis Alberto Metz and colleagues, with an educational cheryl from [employer]. Review of Systems Const Denies chills, Denies fatigue, Denies headache(s) and Denies weight loss Eyes Denies change in vision, Denies diplopia and Denies eye pain ENT Reports Normal hearing present, Denies vertigo, Denies dizziness, Denies headache(s) and Denies nasal discharge Card Denies chest pain, Denies rapid heart rate and Denies dyspnea on exertion Resp Denies chest congestion, Denies cough, Denies pain with cough and Denies dyspnea on exertion GI Denies abdominal pain, Denies hematochezia and Denies change in bowel habits Musc Denies myalgias, Denies arthralgias and Denies joint swelling Skin/Breast Denies lesions and Denies unusual bruising Neuro Reports Normal hearing present, Denies vertigo, Denies dizziness, Denies headache(s) and Denies focal weakness Endo Denies fatigue Physical exam (Primary Care) Vital Signs: Last Vital Signs Temp 97.3 F 09/29/24 10:58 Pulse 85 09/29/24 10:58 BP 100/62 09/29/24 10:58 Pulse Ox 97 09/29/24 10:58 Oxygen Delivery Method Room Air 09/29/24 10:58 BMI result Body Mass Index 20.0 Tobacco/Smoking Status: Tobacco use Status Tobacco use date assessed 09/29/24 09/29/24 10:59 Patient Tobacco Use Status Never used Tobacco 09/29/24 10:59 Tobacco use type Cigarette 09/29/24 10:59 e-Cigarette/Vaping Use Never Used 09/29/24 10:59 PHQ-9: PHQ-9 Score PHQ-9: Total score 0 09/29/24 10:59 Depression Screening Interpretation: Negative Thrive Assessment: Date of Thrive Assessment Date Thrive assessed 09/29/24 09/29/24 10:59 Currently or been in a relationship where the following occur: No concerns reported Const General: cooperative, healthy appearing and no acute distress Orientation/consciousness: oriented to person, oriented to place and oriented to time HENMT Head: Yes normal to inspection, Yes normocephalic and Yes atraumatic Mouth: Normal oral and palatal mucosa present and tongue normal Throat: Yes posterior oropharynx normal and Yes uvula midline Eyes General: appearance normal, both eyes and all related structures Neck Neck: Yes normal visual inspection, Yes full ROM and Yes no lymphadenopathy Thyroid: Thyroid normal Carotids: normal carotid upstroke Chest Chest palpation & inspection: normal inspection of the chest Resp Effort & Inspection: normal respiratory effort and able to speak in complete sentences Auscultation: clear to auscultation bilaterally Cardio Jugular venous distension: no JVD Palpation: normal PMI Rate: regular rate Rhythm: regular rhythm Heart sounds: S1 normal heart sound present and S2 normal heart sound present GI Inspection: Yes normal to inspection Palpation (GI): Soft to palpation and No hepatosplenomegaly present Auscultation: normal bowel sounds General: Yes no CVA tenderness Back/Spine/Pelvis Back: no CVA tenderness Skin General skin exam: no rashes or lesions noted Neuro General: oriented to person, oriented to place and oriented to time Cranial nerves: Yes Normal hearing present Extrem General: Yes normal to inspection and Yes full ROM Coding Level of Care Code Est Pt Level 4 (14654) Diagnoses Preop exam for internal medicine Z01.818 Hyperlipidemia E78.5 Diabetes mellitus with coincident hypertension E11.9; I10 Hypertension I10 Assessment & Plan Assessment & Plan (1) Preop exam for internal medicine: Code(s): Z01.818 - Encounter for other preprocedural examination Category: Medical Plan: low risk for cardiovascular complications; cleared for surgery; (2) Hyperlipidemia: Code(s): E78.5 - Hyperlipidemia, unspecified Category: Medical Plan: stable; same rx (3) Diabetes mellitus with coincident hypertension: Code(s): E11.9 - Type 2 diabetes mellitus without complications; I10 - Essential (primary) hypertension Category: Medical Plan: stable; same rx (4) Hypertension: Code(s): I10 - Essential (primary) hypertension Category: Medical Plan: stable; same rx
[2024-09-29 10:58] VITALS: BP 100/62; PULSE 85; TEMP 36.3; O2SAT 97
== END 2024-09-29 11:42 | disposition home or self-care (01) ==
PROVIDERS: PCP Internal Medicine; Visit Provider Internal Medicine
DX: Z01.818 Encounter for other preprocedural examination (principal); E78.5 Hyperlipidemia, unspecified; E11.9 Type 2 diabetes mellitus without complications; I10 Essential (primary) hypertension

== ENCOUNTER → 2024-09-29 10:35 | Outpatient (BNVA) | payer MEDICARE, SELFPAY | PROVIDERS: PCP Internal Medicine; Visit Provider Internal Medicine | DX: Z01.818 Encounter for other preprocedural examination (principal); E78.5 Hyperlipidemia, unspecified; E11.9 Type 2 diabetes mellitus without complications; I10 Essential (primary) hypertension | CPT/HCPCS: 99212 ==

== ENCOUNTER 2025-01-19 13:29 | Outpatient (AMB) | payer MEDICARE, SELFPAY ==
--- NOTE | 2025-01-19 13:34 | A.OFFPC_ITS ---
Vital Signs 01/19/25 13:35 Height 5 ft 6 in Weight 127 lb BMI 20.5 BP 132/72 Blood Pressure Location Lt brachial Position Sitting Intake Visit Reasons: Transfer Care from Dr. 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: No Accompanied by: Self / Same As Patient Allergies thimerosal Allergy (Unknown, Verified 01/19/25 14:05) Unknown gabapentin Adverse Reaction (Verified 01/19/25 14:05) Diarrhea Medication List - Last Reconciled 01/19/25 by Raquel Copeland MD blood sugar diagnostic One Touch Ultra Test Strips to check blood sugars twice a day brimonidine 0.2% 1 drp ophthalmic (eye) TID hydrochlorothiazide 12.5 mg PO DAILY latanoprost 0.005% 1 drp ophthalmic (eye) BEDTIME lovastatin 40 mg PO DAILY metformin 500 mg PO TID tramadol 50 mg PO Q8H PRN 30 days valsartan 160 mg PO DAILY Tobacco use date assessed: 09/29/24 Fall risk assessment: No Falls in past year Last assessed Fall Risk: 01/19/25 Dental Screening Dental Screen Date: 01/19/25 Did you have a dental visit in the last 12 months?: Yes Did you have a dental problem in the last 6 months where you did not have access to dental care?: No Was dental information given to patient?: Patient has dentist HPI HPI Comments History of Present Illness Details The patient is a 69-year-old female presenting with chronic pain management. Her pain history denotes a significant back pain issue, requiring medical intervention with cortisone injections, surgeries in April and July of the previous year, and management with a spinal cord stimulator. Postoperative pain remained significant, and subsequent treatment attempts, including a caudal injection, required reevaluation due to adverse reactions. Considering her complex history, an increase in tramadol for managing pain is preferred. In addition, she manages glaucoma with eye drops and hypertension and hyperlipidemia with respective medications, demonstrating stable vitals with an A1c of 6.6% and LDL at 80. 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 Despite managing these chronic conditions, she faces debilitating pain issues impacting her quality of life. Has diabetes mellitus type 2 on her A1c is within goal. Hypertension well controlled with medication. [facility] Medical History (Updated 01/19/25 @ 14:20 by Raquel Copeland MD) Diabetes mellitus with coincident hypertension Hypertension Diabetes mellitus Surgical History S/P insertion of spinal cord stimulator Hx of discectomy Family History Father Hypertension Mother Brain tumor Maternal Grandfather Stomach cancer Maternal Aunt Uterine cancer Brother No problems noted. Social History Housing: House Alcohol intake: never Patient Tobacco Use Status: Never used Tobacco e-Cigarette/Vaping Use: Never Used Second Hand Smoke Exposure: No service: No Current occupational status: retired Cognitive needs: No Hearing needs: No Vision needs: Yes Questionnaire PHQ-9 Over the last 2 weeks, how often have you been bothered by any of the following problems? 1. Little interest or pleasure in doing things: not at all 2. Feeling down, depressed, or hopeless: not at all 3. Trouble falling or staying asleep, or sleeping too much: not at all 4. Feeling tired or having little energy: not at all 5. Poor appetite or overeating: not at all 6. Feeling bad about yourself - or that you are a failure or have let yourself or your family down: not at all 7. Trouble concentrating on things, such as reading the newspaper or watching television: not at all 8. Moving or speaking so slowly that other people could have noticed. Or the opposite - being so fidgety or restless that you have been moving around a lot more than usual: not at all 9. Thoughts that you would be better off or of hurting yourself in some way: not at all Total score: 0 Depression Screening Interpretation: Negative Depression Screening Done: Yes 44169 - PHQ-9 Billing: Yes Source: Developed by Drs. Jacky Olson, Jaelyn Pollock, Luis Alberto Metz and colleagues, with an educational cheryl from [employer] [place]. Thrive Questionnaire Date Thrive assessed: 01/19/25 I am a: Patient What is your living situation today?: I have a steady place to live Within the past 12 months, did the food you bought not last and you didn't have the money to get more?: Never true Within the past 12 months, did you worry whether your food would run out before you got money to buy more?: Never true Do you have trouble paying for medicines?: No Do you have trouble getting transportation to medical appointments?: No Do you have trouble paying your heating and electricity bill?: No Do you have trouble taking care of your child, family member or friend?: No Do you have trouble with day-to-day activities such as bathing, preparing meals, shopping, managing finances, etc.?: No Are you currently unemployed and looking for a job?: No Are you interested in more education?: No Please select the resources that you would like help with: None Currently or been in a relationship where the following occur: No concerns rep orted THRIVE Score: 0 AUDIT C Alcohol Use Questionnaire (AUDIT-C) 1. How often do you have a drink containing alcohol?: Never Total Score: 0 Score Reviewed/Action Taken: No YEVGENIY-7 AMB Questionnaire YEVGENIY-7 Date YEVGENIY - 7 assessed: 01/19/25 Feeling nervous, anxious, or on edge: 0 = Not at all Not being able to stop or control worryin = Not at all Worrying too much about different things: 0 = Not at all Trouble relaxin = Not at all Being so restless that it is hard to sit still: 0 = Not at all Becoming easily annoyed or irritable: 0 = Not at all Feeling afraid as if something awful might happen: 0 = Not at all Total YEVGENIY-7 score (0-4 normal; 5-9 mild; 10-14 moderate; 15-21 severe): 0 Source: Developed by Drs. Jacky Olson, Jaelyn Pollock, Luis Alberto Metz and colleagues, with an educational cheryl from [employer] [place]. YEVGENIY-7 Assessment Billing EYVGENIY-7 Assessment Tool: YEVGENIY-7 Assessment 47548 Review of Systems Const All systems reviewed & are unremarkable except as noted in HPI and below Card Denies chest pain at rest, Denies chest pain with activity, Denies edema, Denies irregular heart rhythm, Denies claudication, Denies dyspnea, Denies dyspnea on exertion, Denies orthopnea, Denies paroxysmal nocturnal dyspnea and Denies slow heart rate Resp Denies cough, Denies dyspnea and Denies dyspnea on exertion GI Denies abdominal pain, Denies change in bowel habits, Denies excessive flatus, Denies nausea and Denies vomiting Denies urinary incontinence, Denies urinary hesitancy and Denies urinary urgency Neuro Denies lack of coordination Physical exam (Primary Care) Vital Signs: Last Vital Signs BP 132/72 01/19/25 13:35 BMI result Body Mass Index 20.5 Tobacco/Smoking Status: Tobacco use Status Tobacco use date assessed 09/29/24 01/19/25 13:37 Patient Tobacco Use Status Never used Tobacco 01/19/25 13:37 Tobacco use type 01/19/25 13:51 e-Cigarette/Vaping Use Never Used 01/19/25 13:37 PHQ-9: PHQ-9 Score PHQ-9: Total score 0 01/19/25 13:37 Depression Screening Interpretation: Negative Thrive Assessment: Date of Thrive Assessment Date Thrive assessed 01/19/25 01/19/25 13:37 Currently or been in a relationship where the following occur: No concerns reported Resp Effort & Inspection: normal respiratory effort Auscultation: clear to auscultation bilaterally Cardio Jugular venous distension: no JVD Rate: regular rate Rhythm: regular rhythm Heart sounds: S1 normal heart sound present and S2 normal heart sound present Extrem General: Yes full ROM Results AMB Hemoglobin A1c AMB Hemoglobin A1c 6.6 % Last Edit by MEMO Knutson on 01/19/25 13:5 4 Results Reviewed Results Reviewed: Laboratory Last Values Hgb A1c (Clinic) 6.6 % (4.0-6.0) H 01/19/25 13:52 Coding Level of Care Code Est Pt Level 4 (34808) Complex EM visit Add On G2211 Diagnoses Type 2 diabetes mellitus without complication, without long-term current use of insulin E11.9 Diabetes mellitus type: type 2 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: without termite technician use Diabetes mellitus complication status: without complication Primary hypertension I10 Hypertension type: primary hypertension Pure hypercholesterolemia E78.00 Hyperlipidemia type: pure hypercholesterolemia Radiculopathy, lumbar region M54.16 Additional Codes PHQ-9 - 22342 - PHQ-9 Billing: Yes ([id number]) YEVGENIY-7 Assessment Billing - YEVGENIY-7 Assessment Tool: YEVGENIY-7 Assessment 85125 ([id number]) Time Spent (min) 23 Assessment & Plan Assessment & Plan (1) Diabetes mellitus: Comment: stable Code(s): E11.9 - Type 2 diabetes mellitus without complications Category: Medical Qualifiers: Diabetes mellitus type: type 2 Diabetes mellitus nursing home insulin use: without nursing home use Diabetes mellitus complication status: without co mplication Qualified Code(s): E11.9 - Type 2 diabetes mellitus without complications (2) Hypertension: Code(s): I10 - Essential (primary) hypertension Category: Medical Qualifiers: Hypertension type: primary hypertension Qualified Code(s): I10 - Essential (primary) hypertension (3) Hyperlipidemia: Code(s): E78.5 - Hyperlipidemia, unspecified Category: Medical Qualifiers: Hyperlipidemia type: pure hypercholesterolemia Qualified Code(s): E78.00 - Pure hypercholesterolemia, unspecified (4) Radiculopathy, lumbar region: Code(s): M54.16 - Radiculopathy, lumbar region Category: Medical Plan The tramadol prescription is to manage chronic back pain, increasing to 90 tablets per prescription based on ongoing pain and previous attempt limitations. Glaucoma medication is to continue as prescribed. Diabetes and hyperlipidemia are stable with current treatment; however, future tests should aim for LDL goal of 70mg/dL. Follow-up includes a repeat urine protein screening in four months and scheduling a bone density scan. Recommendations for future tetanus vaccination and regular physical activity were addressed. Patient was informed and verbally consented to the use of an ambient scribe for clinic note documentation during this visit. We thoroughly discussed the challenges in managing chronic pain with alternative therapies, including a pain pump, which were declined based on current management satisfaction. I emphasized the need for continued use of tramadol as prescribed, given the limitation of surgical options and past unsuccessful interventions. We covered potential side effects of medications and clarified the necessity of routine glucose and lipid level monitoring. Follow-up plans were set with future screenings and imaging scheduled. Agreement on management plans was achieved following a comprehensive review of her chronic health conditions and current treatment efficacy. Orders: Orders Microalbumin, Random (w Creat) 4 Months R80.9 - Proteinuria, unspecified Comprehensive [place]. Panel Fast 4 Months E78.5 - Hyperlipidemia, unspecified AMB Hemoglobin A1c Today E11.9 - Type 2 diabetes mellitus without complications Lipid Panel 4 Months E78.5 - Hyperlipidemia, unspecified XR DEXA axial skeleton Today Z78.0 - Asymptomatic menopausal state Medications: Changed From blood sugar diagnostic One Touch Ultra Test Strips to check blood sugars twice a day 100 ea 8RF DX: E11.9 To blood sugar diagnostic One Touch Ultra Test Strips to check blood sugars once a day 100 ea 8RF DX: E11.9 Refilled tramadol 50 mg PO Q8H 30 days PRN 90 tabs 0RF pain Patient Instructions: - Take tramadol as prescribed for pain - Continue glaucoma eye drops - Follow current regimen for diabetes, hypertension, and hyperlipidemia - Schedule and complete a bone density test - Plan for a tetanus vaccination update in future visits - Repeat proteinuria screening in four months - Maintain regular physical activity and healthy diet - Be aware of potential medication side effects and report any concerning symptoms - Attend scheduled follow-up appointments and screenings
[2025-01-19 13:35] VITALS: BP 132/72; BMI 20.5
--- OUTSIDE RECORDS SUMMARY | 2025-01-19 15:13 | XMS_ITS | Clinical Summary ---
Author Organization [facility] Address [address] [place] [address] Care Team Providers Care Professor Of Physical Education Name Role Phone Lazaro Martinez MD Primary Care Provider [phone] Social History Tobacco Use Types Packs/Day Years Used Date Smoking Tobacco: Never Assessed Sex and Gender Information Value Date Recorded Sex Assigned at Not on file Gender Identity Not on file Sexual Orientation Not on file Job Start Date Occupation Industry Not on file Not on file Not on file Plan of Treatment Health Maintenance Due Date Last Done Comments Hepatitis C Screening 1955 COVID-19 Vaccine (#1) 1953 Depression Screening 1965 Preventative Health Evaluation 1971 DTap / Tdap / Td (1 - Tdap) 1972 Colon Cancer Screening (Colonoscopy) 1998 Breast Cancer Screening (Mammogram) 2003 Shingrix-Zoster Vaccine (1 of 2) 2003 Fall Risk Assessment 2018 Osteoporosis Screening (DEXA Scan) 2018 Pneumococcal Vaccine (1 of 1 - PCV) 2018 Influenza Vaccine (Season Ended) 2025 RSV Adult > 60+ Yrs or Pregn ant (1 - 1-dose 75+ series) 2028 Hepatitis B Vaccines Aged Out No long er eligible based on patient's age to complete this topic RSV Ped < 20 months Aged Out No longe r eligible based on patient's age to complete this topic Care Teams Professor Of Physical Education Relationship Specialty Start Date End Date Lazaro Martinez MD [address] [place] [address] Dr Ferrell [address] [place] [address] [phone] PCP - General Internal Medicine 04/07/20
== END 2025-01-19 14:18 | disposition home or self-care (01) ==
LOC: HO.HMCH 13:29
PROVIDERS: PCP Internal Medicine; Visit Provider Internal Medicine
DX: E11.9 Type 2 diabetes mellitus without complications (principal); I10 Essential (primary) hypertension; E78.00 Pure hypercholesterolemia, unspecified; M54.16 Radiculopathy, lumbar region

== ENCOUNTER → 2025-01-19 13:29 | Outpatient (BNVA) | payer MEDICARE, SELFPAY | PROVIDERS: PCP Internal Medicine; Visit Provider Internal Medicine | DX: E11.9 Type 2 diabetes mellitus without complications (principal); I10 Essential (primary) hypertension; E78.00 Pure hypercholesterolemia, unspecified; M54.16 Radiculopathy, lumbar region | CPT/HCPCS: 83036; 96127; 99212 ==

== ENCOUNTER 2025-02-19 10:10 | Outpatient (REF) | payer MEDICARE, SELFPAY ==
--- NOTE | ~2025-02-19 | MM_ITS ---
EXAMINATION: DXA BONE DENSITY AXIAL HISTORY: Z78.0 - Asymptomatic menopausal state TECHNIQUE: [employer] Dual energy absorptiometry (DEXA) of the lumbar spine, total left hip, and femoral neck was performed. COMPARISON: There are no prior studies for comparison. FINDINGS: The bone mineral density of the lumbar spine is 1.084 g/cm2, corresponding to a T-score of -0.8, and a Z-score of 1.1. This is indicative of normal bone mineral density. The bone mineral density of the left total hip is 0.793 g/cm2, corresponding to a T-score of -1.7, and a Z-score of 0.0. This is indicative of osteopenia. The bone mineral density of the left femoral neck is 0.705 g/cm2, corresponding to a T-score of -2.4, and a Z-score of -0.5. This is indicative of osteopenia. FRACTURE RISK: The FRAX index suggests a risk of major osteoporotic fracture of 13.5%, and of hip fracture 3.8%. MM/XR DEXA axial skeleton IMPRESSION: Based on bone mineral density, and according to World Health Organization (WHO) criteria, the diagnosis is consistent with osteopenia. Statistically, 68% of repeat scans fall within 1 SD (+/- 0.010 g/cm2 for AP spine L1-L4) and 1 SD (+/- 0.012 g/cm2 for femur total) FRAX is a trademark of the [employer]'s [place] for Metabolic Bone Disease, a World Health Organization (WHO) Collaborating Center. Electronically signed by: Jacky Whitman MD 02/19/2025 11:00 AM EDT
--- OUTSIDE RECORDS SUMMARY | 2025-02-19 10:49 | XMS_ITS | Clinical Summary ---
Author Organization [facility] Address [address] [place] [address] Care Team Providers Care Footwear Sales Leader Name Role Phone Lazaro Martinez MD Primary Care Provider [phone] Social History Tobacco Use Types Packs/Day Years [...] of 1 - PCV) 2018 Influenza Vaccine (#1) 2025 RSV Adult > 60+ Yrs or Pregn ant (1 - 1-dose 75+ series) 2028 Hepatitis B Vaccines Aged Out No long er eligible based on patient's age to complete this topic RSV Ped < 20 months Aged Out No longe r eligible based on patient's age to complete this topic Care Teams Footwear Sales Leader Relationship Specialty Start Date End Date Lazaro Martinez MD [address] [place] [address] Dr Ferrell [address] [place] [address] [phone] PCP - General Internal Medicine 04/07/20
== END 2025-02-19 10:11 | disposition home or self-care (01) ==
LOC: HO.MAMMO 10:10
PROVIDERS: PCP Internal Medicine; Visit Provider Internal Medicine
DX: Z13.820 Encounter for screening for osteoporosis (principal); Z78.0 Asymptomatic menopausal state
CPT/HCPCS: 77080

== ENCOUNTER → 2025-02-19 10:30 | Outpatient (BNV) | payer MEDICARE, SELFPAY | PROVIDERS: PCP Internal Medicine; Visit Provider Radiology Diagnostic Radiology | DX: E28.39 Other primary ovarian failure (principal) | CPT/HCPCS: 77080 ==

== ENCOUNTER 2025-05-25 10:22 | Outpatient (AMB) | payer MEDICARE, SELFPAY ==
--- OUTSIDE RECORDS SUMMARY | 2025-05-25 10:25 | XMS_ITS | Clinical Summary ---
Author Organization [facility] Address [address] [place] [address] Care Team Providers Care Solar Field Installation Crew Member Name Role Phone Lazaro Martinez MD Primary Care Provider [phone] Social History Tobacco Use Types Packs/Day Years [...] age to complete this topic Care Teams Solar Field Installation Crew Member Relationship Specialty Start Date End Date Lazaro Martinez MD [address] [place] [address] Dr Frerell [address] [place] [address] [phone] PCP - General Internal Medicine 04/07/20
[2025-05-25 10:29] VITALS: BP 120/60; PULSE 82; RESP 18; TEMP 36.1; O2SAT 94; BMI 21.5
--- NOTE | 2025-05-25 10:29 | MHC.PC.OV ---
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 Required: No Accompanied by: Self / Same As Patient Allergies thimerosal Allergy (Unknown, Verified 05/25/25 10:54) Unknown gabapentin Adverse Reaction (Verified 05/25/25 10:54) Diarrhea Medication List - Last Reconciled 05/25/25 by Raquel Copeland MD blood sugar diagnostic One Touch Ultra Test Strips to check blood sugars once a day brimonidine 0.2% 1 drp ophthalmic (eye) TID cyclosporine 0.05% (Restasis MultiDose) 1 drp ophthalmic (eye) Q12H hydrochlorothiazide 12.5 mg PO DAILY latanoprost 0.005% 1 drp ophthalmic (eye) BEDTIME lovastatin 40 mg PO DAILY metformin 500 mg PO TID tramadol 50 mg PO Q8H PRN 30 days valsartan 160 mg PO DAILY Tobacco use date assessed: 05/25/25 Fall risk assessment: No Falls in past year Last assessed Fall Risk: 05/25/25 Dental Screening Dental Screen Date: 05/25/25 Did you have a dental visit in the last 12 months?: Yes Did you have a dental problem in the last 6 months where you did not have access to dental care?: No Was dental information given to patient?: Patient has dentist HPI HPI Comments History of Present Illness Details The patient is a 70-year-old female presenting with follow-up on chronic conditions. The patient has chronic kidney disease stage 3 with a GFR of 45, which is below the normal range. The condition is monitored, and NSAIDs are avoided to prevent further damage. Hypertension is well-controlled with a blood pressure goal of less than 130/80 mmHg. The patient is on hydrochlorothiazide and valsartan for management. Hyperlipidemia is managed with lobastatin, achieving an LDL level of less than 70 and total cholesterol of 135. Diabetes mellitus is managed with metformin, with an A1c of 6.4%, indicating good control. Chronic pain is exacerbated by physical activities, managed with tramadol as needed. The patient has allergies to thimerosal and gabapentin, with the latter causing diarrhea. PFSH Medical History Diabetes mellitus with coincident hypertension Hypertension Diabetes mellitus Surgical History S/P insertion of spinal cord stimulator Hx of discectomy Family History Father Hypertension Mother Brain tumor Maternal Grandfather Stomach cancer Maternal Aunt Uterine cancer Brother No problems noted. Social History Housing: House Alcohol intake: never Patient Tobacco Use Status: Never used Tobacco e-Cigarette/Vaping Use: Never Used Second Hand Smoke Exposure: No service: No Current occupational status: retired Cognitive needs: No Hearing needs: No Vision needs: Yes Questionnaire Thrive Questionnaire Date Thrive assessed: 01/19/25 I am a: Patient What is your living situation today?: I have a steady place to live Within the past 12 months, did the food you bought not last and you didn't have the money to get more?: Never true Within the past 12 months, did you worry whether your food would run out before you got money to buy more?: Never true Do you have trouble paying for medicines?: No Do you have trouble getting transportation to medical appointments?: No Do you have trouble paying your heating and electricity bill?: No Do you have trouble taking care of your child, family member or friend?: No Do you have trouble with day-to-day activities such as bathing, preparing meals, shopping, managing finances, etc.?: No Are you currently unemployed and looking for a job?: No Are you interested in more education?: No Please select the resources that you would like help with: None Currently or been in a relationship where the following occur: No concerns reported THRIVE Score: 0 AUDIT C Alcohol Use Questionnaire (AUDIT-C) 1. How often do you have a drink containing alcohol?: Never Total Score: 0 Score Reviewed/Action Taken: No YEVGENIY-7 AMB Questionnaire YEVGENIY-7 Date YEVGENIY - 7 assessed: 01/19/25 Feeling nervous, anxious, or on edge: 0 = Not at all Source: Developed by Drs. Jacky Olson, Jaelyn Pollock, Luis Alberto Metz and colleagues, with an educational cheryl from [employer]. Review of Systems Const All systems reviewed & are unremarkable except as noted in HPI and below Card Denies chest pain at rest, Denies chest pain with activity, Denies edema, Denies irregular heart rhythm, Denies claudication, Denies dyspnea, Denies dyspnea on exertion, Denies orthopnea, Denies paroxysmal nocturnal dyspnea and Denies slow heart rate Resp Denies cough, Denies dyspnea and Denies dyspnea on exertion GI Denies abdominal pain, Denies change in bowel habits, Denies excessive flatus, Denies nausea and Denies vomiting Physical exam (Primary Care) Vital Signs: Last Vital Signs Temp 96.9 F 05/25/25 10:29 Pulse 82 05/25/25 10:29 Resp 18 05/25/25 10:29 BP 120/60 05/25/25 10:29 Pulse Ox 94 05/25/25 10:29 Oxygen Delivery Method Room Air 05/25/25 10:29 BMI result Body Mass Index 21.5 Tobacco/Smoking Status: Tobacco use Status Tobacco use date assessed 05/25/25 05/25/25 10:34 Patient Tobacco Use Status Never used Tobacco 05/25/25 10:34 Tobacco use type 01/19/25 14:17 e-Cigarette/Vaping Use Never Used 05/25/25 10:34 Thrive Assessment: Date of Thrive Assessment Date Thrive assessed 01/19/25 05/25/25 10:34 Currently or been in a relationship where the following occur: No concerns reported Resp Effort & Inspection: normal respiratory effort Auscultation: clear to auscultation bilaterally Cardio Jugular venous distension: no JVD Rate: regular rate Rhythm: regular rhythm Heart sounds: S1 normal heart sound present and S2 normal heart sound present Extrem General: Yes full ROM Office Procedures Flu Questionnaire Does the patient have a severe egg allergy?: No Does the patient have severe life threatening allergies?: No Does the patient have a fever or illness today?: No Has the patient ever had Guillain-Paullina Syndrome?: No Has the patient ever had any past reaction to a flu shot?: No Results AMB Hemoglobin A1c AMB Hemoglobin A1c 6.4 % Last Edit by MEMO Miller on 05/25/25 11:04 Immunizations Fluarix [id number] (PF) 45 mcg (15 mcg x 3)/0.5 mL IM syringe Performing Provider: Raquel Copeland MD [place] [facility] Administered by: Nany Marina RN on 05/25/25 11:06 Dose Route Admin Location Dispensed Lot Number Expiration Date [employer] Systems Administrator 0.5 mL IM Right Deltoid 0.5 mL [id number] 02/09/26 14620-934-84 [employer] VIS Given Date VIS Provided VIS Publication Date 05/25/25 Single Vaccine 24 Eligibility Eligibility Date Funding Source Not [facility] Eligible 05/25/25 Private Results Reviewed Results Reviewed: Laboratory Last Values Hgb A1c (Clinic) 6.4 % (4.0-6.0) H 05/25/25 10:53 Coding Level of Care Code Est Pt Level 4 (78070) Complex EM visit Add On G2211 Diagnoses Type 2 diabetes mellitus without complication, without long-term current use of insulin E11.9 Diabetes mellitus type: type 2 Diabetes mellitus machine long goods helper insulin use: without machine long goods helper use Diabetes mellitus complication status: without complication Primary hypertension I10 Hypertension type: primary hypertension Pure hypercholesterolemia E78.00 Hyperlipidemia type: pure hypercholesterolemia Chronic pain syndrome G89.4 Time Spent (min) 24 Assessment & Plan Assessment & Plan (1) Diabetes mellitus: Comment: stable Code(s): E11.9 - Type 2 diabetes mellitus without complications Category: Medical Qualifiers: Diabetes mellitus type: type 2 Diabetes mellitus machine long goods helper insulin use: without machine long goods helper use Diabetes mellitus complication status: without complication Qualified Code(s): E11.9 - Type 2 diabetes mellitus without complications (2) Hypertension: Code(s): I10 - Essential (primary) hypertension Category: Medical Qualifiers: Hypertension type: primary hypertension Qualified Code(s): I10 - Essential (primary) hypertension (3) Hyperlipidemia: Code(s): E78.5 - Hyperlipidemia, unspecified Category: Medical Qualifiers: Hyperlipidemia type: pure hypercholesterolemia Qualified Code(s): E78.00 - Pure hypercholesterolemia, unspecified (4) Chronic pain syndrome: Code(s): G89.4 - Chronic pain syndrome Category: Medical Plan Plan Patient was informed and verbally consented to the use of an ambient scribe for clinic note documentation during this visit. 1. Chronic kidney disease, stage 3 unspecified N18.30 HCC 138 Chronic kidney disease stage 3 is monitored with a GFR of 45. NSAIDs are avoided to prevent further damage, and follow-up is planned in four months. 2. Essential (primary) hypertension I10 Hypertension is controlled with hydrochlorothiazide and valsartan. Continued monitoring and adherence to medication are recommended. 3. Hyperlipidemia, unspecified E78.5 Hyperlipidemia is managed with lobastatin, achieving target lipid levels. Continued adherence to medication and monitoring are advised. 4. Type 2 diabetes mellitus without complications E11.9 HCC 19 Diabetes mellitus is managed with metformin, with an A1c of 6.4%. Regular monitoring and adherence to medication are recommended. 5. Other chronic pain G89.29 Chronic pain is managed with tramadol, used as needed. A refill is provided, and the patient is advised to avoid overuse. Orders: Orders Lipid Panel 4 Months E78.5 - Hyperlipidemia, unspecified Microalbumin, Random (w Creat) 4 Months R80.9 - Proteinuria, unspecified Comprehensive [place]. Panel Fast 4 Months E11.9 - Type 2 diabetes mellitus without complications MM tomosynthesis screening BI Today Z12.31 - Encounter for screening mammogram for malignant neoplasm of breast AMB Hemoglobin A1c Today E11.9 - Type 2 diabetes mellitus without complications Influenza [id number] Immunization Today Z23 - Encounter for immunization Medications: Refilled tramadol 50 mg PO Q8H PRN 90 tabs 0RF pain 30 days
== END 2025-05-25 11:13 | disposition home or self-care (01) ==
LOC: HO.HMCH 10:23
PROVIDERS: PCP Internal Medicine; Visit Provider Internal Medicine
DX: E11.9 Type 2 diabetes mellitus without complications (principal); I10 Essential (primary) hypertension; E78.00 Pure hypercholesterolemia, unspecified; G89.4 Chronic pain syndrome; Z23 Encounter for immunization

== ENCOUNTER → 2025-05-25 10:22 | Outpatient (BNVA) | payer MEDICARE, SELFPAY | PROVIDERS: PCP Internal Medicine; Visit Provider Internal Medicine | DX: E11.22 Type 2 diabetes mellitus with diabetic chronic kidney disease (principal); I12.9 Hypertensive chronic kidney disease with stage 1 through stage 4 chronic kidney disease, or unspecified chronic kidney disease; N18.30 Chronic kidney disease, stage 3 unspecified; E78.5 Hyperlipidemia, unspecified; G89.4 Chronic pain syndrome; Z23 Encounter for immunization | CPT/HCPCS: 83036; 90471; 90656; 99212 ==